=== PATIENT | female | born 1975 | race Caucasian/White ===

== ENCOUNTER → 2023-11-07 | Emergency (ER) | payer OTHER ==
[~2023-11-07] MED LIST: DIPHENHYDRAMINE 50 MG/ML VIAL ONE; KETOROLAC 30 MG/ML INJ ONE; METOCLOPRAMIDE 10 MG/2mL INJ ONE; Magnesium Sulfate 2gm IVPB 2 G/50 ML BAG IV ONE; NA CHLORIDE 0.9% 1,000 ML ONE
--- OUTSIDE RECORDS SUMMARY | 2023-11-07 03:52 | XMS REPORT | Continuity of Care Document ---
Author Name Unknown Address [address] [facility] [address] [place] [address] [facility] Address [address] [facility]. 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 Role Phone Jeremiah DE LA PAZ, Jesse Helen Primary Care Physician Jesse Daniels Attending Clinician Unavailable [email or web address] Attending Clinician Unavaila GUSTAVO Barboza Attending Clinician Unavailable GUSTAVO RUCKER Attending Clinician Unavailable Caleb Silverio RN Attending Clinician Unavailabl e Doctor Unassigned, Naomi Attending Clinician [facility] navailable Lab, [facility] Attending Clinician Unavailable ARTIS ISAAC Attending Clinician Unavailable Visit, [facility] Dermatology Nurse Attending Clinician Unavailable Vinicius Garcia MD Attending Clinician [phone] TREVOR SINGER Attending Clinician Unavailable Jovany Saeed DO Attending Clinician [phone] Trevor Singer MD Attending Clinician [phone] AVTAR HENRY Attending Clinician UnavailVINICIUS Recinos Attending Clinician Unavailab Laura Atkins MD Attending Clinician [phone] [facility] Attending Clinician Unavailable Terrell Black MD Attending Clinician [phone] Jackie Ledezma MD Attending Clinician Karl Spivey MD Attending Clinician Sarah MANN Attending Clinician Unavailable Sarah White Attending Clinician [phone] Pob, [facility] Main Attending Clinician Unavailyovany Isaac MD, Artis Cordova Attending Clinician [phone], [facility] Attending Clinician Unavailable Jose JENNINGS, Johanne Alexander Attending Clinician [phone] JOHANNE GARCIA Attending Clinician Unavailyovany cordova Only, [facility] Attending Clinician Unavailable Kong DE LA PAZ, Efe Attending Clinician [phone] Rodríguez LOZANOS, Satinder Pearl Attending Clinician + [phone] SATINDER ARREGUIN Attending Clinician UnavailNghia Jose MD Attending Clinician [phone] ProviderVishal Attending Clinician Phyllis Paige MD, Ken Roa Attending Clinician [phone] KEN PAIGE Attending Clinician Unavailable [email or web address] Admitting Clinician Unavaila ble Payers Payer Name Policy Type Policy Number Effective Date Expirati on Date Source Problems Condition Name Condition Details Condition Category Status Onset Date Resolution Date Last Treatment Date Treating Clinician Comments Source Ulcerative colitis without complicati ons, unspecifie d location Ulcerative colitis without complicati ons, unspecifie d location Disease Active 10-07 00:00: 00 [facility] 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 [facility] Depo-Prove ra contracept yolanda status Depo-Prove ra contracept yolanda status Disease Active 11-20 00:00: 00 [facility] Vaginal lesion Vaginal lesion Disease Active 11-20 00:00: 00 [facility] Tobacco use disorder Tobacco use disorder Disease Active 11-20 00:00: 00 [facility] History of depression History of depression Disease Active 11-20 00:00: 00 [facility] Seizure disorder Seizure disorder Disease Active 11-20 00:00: 00 [facility] Dyspepsia and other specified disorders of function of stomach Dyspepsia and other specified disorders of function of stomach Disease Active 2010-08 00:00: 00 [facility] Esophageal reflux Esophageal reflux Disease Active 2010-08 00:00: 00 [facility] Hepatitis C virus infection without hepatic coma, unspecifie d chronicity Hepatitis C virus infection without hepatic coma, unspecifie d chronicity Problem Active [facility] Ulcerative colitis without complicati ons, unspecifie d location Ulcerative colitis without complicati ons, unspecifie d location Problem Active [facility] Tobacco use disorder Tobacco use disorder Problem Active [facility] 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 Problem Active [facility] Skin lesion of hand Skin lesion of hand Diagnosis Active [facility] Allergies, Adverse Reactions, Alerts Allergy Name Allergy Type Status Severity Reaction(s) Onset Date Inactive Date Treating Clinician Comments Source Gabapent in Drug Allergy Active Extra pyramidal effects 2017-08 00:00: 00 [facility] acute [facility] Pregabal in Drug Allergy Active Other - See comments 2017-08 00:00: 00 Patient reports feeling like "needles" are on her skin [facility] acute hospital GABAPENT IN DRUG INGREDI Active High EP Effects 2017-08 00:00: 00 [facility] PREGABAL IN DRUG INGREDI Active High Other-Cmnt 2017-08 00:00: 00 [facility] Trazodon e Propensi ty to adverse reaction s Active Other - See comments 11-08 00:00: 00 Night Sweats [facility] acute hospital TRAZODON E DRUG INGREDI Active Other-Cmnt 11-08 00:00: 00 [facility] acute [facility] Doxycycl ine Propensi ty to adverse reaction s Active Unknown - See comments 2010-08 00:00: 00 [facility] acute [facility] Sulfamet hazine Propensi ty to adverse reaction s Active Unknown - See comments 2010-08 00:00: 00 Allergic to Bactrim [facility] DOXYCYCL INE DRUG INGREDI Active Unknown-Cmnt 2010-08 00:00: 00 [facility] SULFAMET HAZINE DRUG INGREDI Active Unknown-Cmnt 2010-08 00:00: 00 [facility] doxycycl ine Adverse Reaction Active Info Not Available [facility] Bactrim Adverse Reaction Active Info Not Available [facility] Social History Social Habit Start Date Stop Date Quantity Comments Source History of tobacco use Cigarette Smoker [facility] ASSERTION [facility] Exposure to SARS-CoV-2 (event) 2022-08-25 00:00:00 2022-09-04 12:29:00 Not sure [facility] Alcohol intake 2022-06-25 00:00:00 2022-06-25 00:00:00 Current non-drinker of alcohol (finding) [facility] Tobacco use and exposure 2022-06-23 00:00:00 2022-06-23 00:00:00 Smokeless tobacco non-user [facility] Cigarettes smoked current (pack per day) - Reported 2022-06-23 00:00:00 2022-06-23 00:00:00 [facility] Cigarette pack-years 2022-06-23 00:00:00 2022-06-23 00:00:00 [facility] Tobacco Comment 2022-06-23 00:00:00 2022-06-23 00:00:00 Smokes 1/2 pk/cig/day [facility] History of Social function 2022-06-23 00:00:00 2022-06-23 00:00:00 [facility] Sex Assigned At 1975 00:00:00 1975 00:00:00 [facility] Smoking Status Start Date Stop Date Source Smokes tobacco daily 2022-06-23 00:00:00 [facility] Medications Ordered Medication Name Filled Medication Name Start Date Stop Date Current Medication? Ordering Clinician Indication Dosage Frequency Signature (SIG) Comments Components Source mupirocin 2 % ointment 2021-08 00:00: 00 Yes [id number] Apply to area(s) 3 (three) times daily. [facility] mupirocin 2 % ointment 2021-08 00:00: 00 Yes [id number] Apply to area(s) 3 (three) times daily. [facility] mupirocin 2 % ointment 2021-08 00:00: 00 Yes [id number] Apply to area(s) 3 (three) times daily. [facility] mupirocin 2 % ointment 2021-08 00:00: 00 Yes [id number] Apply to area(s) 3 (three) times daily. [facility] mupirocin 2 % ointment 2021-08 00:00: 00 Yes [id number] Apply to area(s) 3 (three) times daily. [facility] mupirocin 2 % ointment 2021-08 00:00: 00 Yes [id number] Apply to area(s) 3 (three) times daily. [facility] mupirocin 2 % ointment 2021-08 00:00: 00 Yes [id number] Apply to area(s) 3 (three) times daily. [facility] mupirocin 2 % ointment 2021-08 00:00: 00 Yes [id number] Apply to area(s) 3 (three) times daily. [facility] mupirocin 2 % ointment 2021-08 00:00: 00 Yes [id number] Apply to area(s) 3 (three) times daily. [facility] mupirocin 2 % ointment 2021-08 00:00: 00 Yes [id number] Apply to area(s) 3 (three) times daily. [facility] meloxicam 15 mg tablet 2021-08 00:00: 00 07-21 05:59 :00 No [id number] 15mg Take 1 tablet by mouth once daily as needed for Pain or Inflammati on for up to 20 days. [facility] meloxicam 15 mg tablet 2021-08 00:00: 00 07-21 05:59 :00 No [id number] 15mg Take 1 tablet by mouth once daily as needed for Pain or Inflammati on for up to 20 days. [facility] meloxicam 15 mg tablet 2021-08 00:00: 00 07-21 05:59 :00 No [id number] 15mg Take 1 tablet by mouth once daily as needed for Pain or Inflammati on for up to 20 days. [facility] meloxicam 15 mg tablet 2021-08 00:00: 00 07-21 05:59 :00 No [id number] 15mg Take 1 tablet by mouth once daily as needed for Pain or Inflammati on for up to 20 days. [facility] clindamycin 300 mg capsule 2021-08 00:00: 00 07-08 05:59 :00 No [id number] 300mg Take 1 capsule by mouth 4 (four) times daily for 7 days. [facility] clindamycin 300 mg capsule 2021-08 00:00: 00 07-08 05:59 :00 No [id number] 300mg Take 1 capsule by mouth 4 (four) times daily for 7 days. [facility] clindamycin 300 mg capsule 2021-08 00:00: 00 07-08 05:59 :00 No [id number] 300mg Take 1 capsule by mouth 4 (four) times daily for 7 days. [facility] clindamycin 300 mg capsule 2021-08 00:00: 00 07-08 05:59 :00 No [id number] 300mg Take 1 capsule by mouth 4 (four) times daily for 7 days. [facility] triamcinolo ne acetonide 0.1 % cream 2021-08 00:00: 00 Yes [id number] Apply to area(s) 2 (two) times daily. [facility] triamcinolo ne acetonide 0.1 % cream 2021-08 00:00: 00 Yes [id number] Apply to area(s) 2 (two) times daily. [facility] triamcinolo ne acetonide 0.1 % cream 2021-08 00:00: 00 Yes [id number] Apply to area(s) 2 (two) times daily. [facility] triamcinolo ne acetonide 0.1 % cream 2021-08 00:00: 00 Yes [id number] Apply to area(s) 2 (two) times daily. [facility] triamcinolo ne acetonide 0.1 % cream 2021-08 00:00: 00 Yes [id number] Apply to area(s) 2 (two) times daily. [facility] triamcinolo ne acetonide 0.1 % cream 2021-08 00:00: 00 Yes [id number] Apply to area(s) 2 (two) times daily. [facility] triamcinolo ne acetonide 0.1 % cream 2021-08 00:00: 00 Yes [id number] Apply to area(s) 2 (two) times daily. [facility] triamcinolo ne acetonide 0.1 % cream 2021-08 00:00: 00 Yes [id number] Apply to area(s) 2 (two) times daily. [facility] triamcinolo ne acetonide 0.1 % cream 2021-08 00:00: 00 Yes [id number] Apply to area(s) 2 (two) times daily. [facility] triamcinolo ne acetonide 0.1 % cream 2021-08 00:00: 00 Yes [id number] Apply to area(s) 2 (two) times daily. [facility] triamcinolo ne acetonide 0.1 % cream 2021-08 00:00: 00 Yes [id number] Apply to area(s) 2 (two) times daily. [facility] triamcinolo ne acetonide 0.1 % cream 2021-08 00:00: 00 Yes [id number] Apply to area(s) 2 (two) times daily. [facility] triamcinolo ne acetonide 0.1 % cream 2021-08 00:00: 00 Yes [id number] Apply to area(s) 2 (two) times daily. [facility] triamcinolo ne acetonide 0.1 % cream 2021-08 00:00: 00 Yes [id number] Apply to area(s) 2 (two) times daily. [facility] triamcinolo ne acetonide 0.1 % cream 2021-08 00:00: 00 Yes [id number] Apply to area(s) 2 (two) times daily. [facility] triamcinolo ne acetonide 0.1 % cream 2021-08 00:00: 00 Yes [id number] Apply to area(s) 2 (two) times daily. [facility] fluocinonid e 0.05 % cream 2021-08 00:00: 00 Yes [id number] Apply to area(s) 2 (two) times daily. Avoid face, armpits, and groin. [facility] fluocinonid e 0.05 % cream 2021-08 00:00: 00 Yes [id number] Apply to area(s) 2 (two) times daily. Avoid face, armpits, and groin. [facility] fluocinonid e 0.05 % cream 2021-08 00:00: 00 Yes [id number] Apply to area(s) 2 (two) times daily. Avoid face, armpits, and groin. [facility] fluocinonid e 0.05 % cream 2021-08 00:00: 00 Yes [id number] Apply to area(s) 2 (two) times daily. Avoid face, armpits, and groin. [facility] fluocinonid e 0.05 % cream 2021-08 00:00: 00 Yes [id number] Apply to area(s) 2 (two) times daily. Avoid face, armpits, and groin. [facility] fluocinonid e 0.05 % cream 2021-08 00:00: 00 Yes [id number] Apply to area(s) 2 (two) times daily. Avoid face, armpits, and groin. [facility] fluocinonid e 0.05 % cream 2021-08 00:00: 00 Yes [id number] Apply to area(s) 2 (two) times daily. Avoid face, armpits, and groin. [facility] fluocinonid e 0.05 % cream 2021-08 00:00: 00 Yes [id number] Apply to area(s) 2 (two) times daily. Avoid face, armpits, and groin. [facility] fluocinonid e 0.05 % cream 2021-08 00:00: 00 Yes [id number] Apply to area(s) 2 (two) times daily. Avoid face, armpits, and groin. [facility] fluocinonid e 0.05 % cream 2021-08 00:00: 00 Yes [id number] Apply to area(s) 2 (two) times daily. Avoid face, armpits, and groin. [facility] fluocinonid e 0.05 % cream 2021-08 00:00: 00 Yes [id number] Apply to area(s) 2 (two) times daily. Avoid face, armpits, and groin. [facility] fluocinonid e 0.05 % cream 2021-08 00:00: 00 Yes [id number] Apply to area(s) 2 (two) times daily. Avoid face, armpits, and groin. [facility] fluocinonid e 0.05 % cream 2021-08 00:00: 00 Yes [id number] Apply to area(s) 2 (two) times daily. Avoid face, armpits, and groin. [facility] fluocinonid e 0.05 % cream 2021-08 00:00: 00 Yes [id number] Apply to area(s) 2 (two) times daily. Avoid face, armpits, and groin. [facility] fluocinonid e 0.05 % cream 2021-08 00:00: 00 Yes [id number] Apply to area(s) 2 (two) times daily. Avoid face, armpits, and groin. [facility] fluocinonid e 0.05 % cream 2021-08 00:00: 00 Yes [id number] Apply to area(s) 2 (two) times daily. Avoid face, armpits, and groin. [facility] fluocinonid e 0.05 % cream 2021-08 00:00: 00 Yes [id number] Apply to area(s) 2 (two) times daily. Avoid face, armpits, and groin. [facility] fluocinonid e 0.05 % cream 2021-08 00:00: 00 Yes [id number] Apply to area(s) 2 (two) times daily. Avoid face, armpits, and groin. [facility] glecaprevir -pibrentasv ir (MAVYRET) 100-40 mg 0 09-11 00:00: 00 Yes 3{tbl} Take 3 tablets by mouth daily. [facility] glecaprevir -pibrentasv ir (MAVYRET) 100-40 mg 0 09-11 00:00: 00 Yes 3{tbl} Take 3 tablets by mouth daily. [facility] glecaprevir -pibrentasv ir (MAVYRET) 100-40 mg 2020-0 09-11 00:00: 00 Yes 3{tbl} Take 3 tablets by mouth daily. [facility] glecaprevir -pibrentasv ir (MAVYRET) 100-40 mg 0 09-11 00:00: 00 Yes 3{tbl} Take 3 tablets by mouth daily. [facility] glecaprevir -pibrentasv ir (MAVYRET) 100-40 mg 0 09-11 00:00: 00 Yes 3{tbl} Take 3 tablets by mouth daily. [facility] glecaprevir -pibrentasv ir (MAVYRET) 100-40 mg 0 09-11 00:00: 00 Yes 3{tbl} Take 3 tablets by mouth daily. [facility] glecaprevir -pibrentasv ir (MAVYRET) 100-40 mg 2020-0 09-11 00:00: 00 Yes 3{tbl} Take 3 tablets by mouth daily. [facility] glecaprevir -pibrentasv ir (MAVYRET) 100-40 mg 2020-0 09-11 00:00: 00 Yes 3{tbl} Take 3 tablets by mouth daily. [facility] glecaprevir -pibrentasv ir (MAVYRET) 100-40 mg 2020-0 09-11 00:00: 00 Yes 3{tbl} Take 3 tablets by mouth daily. [facility] glecaprevir -pibrentasv ir (MAVYRET) 100-40 mg 2020-0 1-27 00:00: 00 Yes 3{tbl} Take 3 tablets by mouth daily. [facility] glecaprevir -pibrentasv ir (MAVYRET) 100-40 mg 2020-0 09-11 00:00: 00 Yes 3{tbl} Take 3 tablets by mouth daily. [facility] glecaprevir -pibrentasv ir (MAVYRET) 100-40 mg 2020-0 09-11 00:00: 00 Yes 3{tbl} Take 3 tablets by mouth daily. [facility] glecaprevir -pibrentasv ir (MAVYRET) 100-40 mg 2020-0 09-11 00:00: 00 Yes 3{tbl} Take 3 tablets by mouth daily. [facility] glecaprevir -pibrentasv ir (MAVYRET) 100-40 mg 2020-0 09-11 00:00: 00 Yes 3{tbl} Take 3 tablets by mouth daily. [facility] glecaprevir -pibrentasv ir (MAVYRET) 100-40 mg 2020-0 09-11 00:00: 00 Yes 3{tbl} Take 3 tablets by mouth daily. [facility] glecaprevir -pibrentasv ir (MAVYRET) 100-40 mg 2020-0 09-11 00:00: 00 Yes 3{tbl} Take 3 tablets by mouth daily. [facility] glecaprevir -pibrentasv ir (MAVYRET) 100-40 mg 2020-0 09-11 00:00: 00 Yes 3{tbl} Take 3 tablets by mouth daily. [facility] glecaprevir -pibrentasv ir (MAVYRET) 100-40 mg 2020-0 09-11 00:00: 00 Yes 3{tbl} Take 3 tablets by mouth daily. [facility] glecaprevir -pibrentasv ir (MAVYRET) 100-40 mg 2020-0 09-11 00:00: 00 Yes 3{tbl} Take 3 tablets by mouth daily. [facility] glecaprevir -pibrentasv ir (MAVYRET) 100-40 mg 2020-0 09-11 00:00: 00 Yes 3{tbl} Take 3 tablets by mouth daily. [facility] glecaprevir -pibrentasv ir (MAVYRET) 100-40 mg 2020-0 09-11 00:00: 00 Yes 3{tbl} Take 3 tablets by mouth daily. [facility] glecaprevir -pibrentasv ir (MAVYRET) 100-40 mg 2020-0 09-11 00:00: 00 Yes 3{tbl} Take 3 tablets by mouth daily. [facility] glecaprevir -pibrentasv ir (MAVYRET) 100-40 mg 2020-0 09-11 00:00: 00 Yes 3{tbl} Take 3 tablets by mouth daily. [facility] glecaprevir -pibrentasv ir (MAVYRET) 100-40 mg 2020-0 09-11 00:00: 00 Yes 3{tbl} Take 3 tablets by mouth daily. [facility] glecaprevir -pibrentasv ir (MAVYRET) 100-40 mg 2020-0 09-11 00:00: 00 Yes 3{tbl} Take 3 tablets by mouth daily. [facility] glecaprevir -pibrentasv ir (MAVYRET) 100-40 mg 2020-0 09-11 00:00: 00 Yes 3{tbl} Take 3 tablets by mouth daily. [facility] glecaprevir -pibrentasv ir (MAVYRET) 100-40 mg 2020-0 09-11 00:00: 00 Yes 3{tbl} Take 3 tablets by mouth daily. [facility] glecaprevir -pibrentasv ir (MAVYRET) 100-40 mg 2020-0 09-11 00:00: 00 Yes 3{tbl} Take 3 tablets by mouth daily. [facility] glecaprevir -pibrentasv ir (MAVYRET) 100-40 mg 09-11 00:00: 00 Yes 3{tbl} Take 3 tablets by mouth daily. [facility] glecaprevir -pibrentasv ir (MAVYRET) 100-40 mg 09-11 00:00: 00 Yes 3{tbl} Take 3 tablets by mouth daily. [facility] glecaprevir -pibrentasv ir (MAVYRET) 100-40 mg 09-11 00:00: 00 Yes 3{tbl} Take 3 tablets by mouth daily. [facility] glecaprevir -pibrentasv ir (MAVYRET) 100-40 mg 09-11 00:00: 00 Yes 3{tbl} Take 3 tablets by mouth daily. [facility] ibuprofen 600 mg tablet 2019-08 00:00: 00 Yes [id number] 600mg Take 1 tablet by mouth every 6 (six) hours as needed for Pain (scale 4-6). [facility] chlorhexidi ne 0.12 % mouthwash 2019-08 00:00: 00 Yes [id number] 15mL Swish and spit out 15 mL 2 (two) times daily. [facility] amoxicillin 500 mg capsule 2019-08 00:00: 00 Yes [id number] 500mg Take 1 capsule by mouth 3 (three) times daily. [facility] ibuprofen 600 mg tablet 2019-08 00:00: 00 Yes [id number] 600mg Take 1 tablet by mouth every 6 (six) hours as needed for Pain (scale 4-6). [facility] chlorhexidi ne 0.12 % mouthwash 2019-08 00:00: 00 Yes [id number] 15mL Swish and spit out 15 mL 2 (two) times daily. [facility] amoxicillin 500 mg capsule 2019-08 00:00: 00 Yes [id number] 500mg Take 1 capsule by mouth 3 (three) times daily. [facility] ibuprofen 600 mg tablet 2019-08 00:00: 00 Yes [id number] 600mg Take 1 tablet by mouth every 6 (six) hours as needed for Pain (scale 4-6). [facility] chlorhexidi ne 0.12 % mouthwash 2019-08 00:00: 00 Yes [id number] 15mL Swish and spit out 15 mL 2 (two) times daily. [facility] amoxicillin 500 mg capsule 2019-08 00:00: 00 Yes [id number] 500mg Take 1 capsule by mouth 3 (three) times daily. [facility] ibuprofen 600 mg tablet 2019-08 00:00: 00 Yes [id number] 600mg Take 1 tablet by mouth every 6 (six) hours as needed for Pain (scale 4-6). [facility] chlorhexidi ne 0.12 % mouthwash 2019-08 00:00: 00 Yes [id number] 15mL Swish and spit out 15 mL 2 (two) times daily. [facility] amoxicillin 500 mg capsule 2019-08 00:00: 00 Yes [id number] 500mg Take 1 capsule by mouth 3 (three) times daily. [facility] ibuprofen 600 mg tablet 2019-08 00:00: 00 Yes [id number] 600mg Take 1 tablet by mouth every 6 (six) hours as needed for Pain (scale 4-6). [facility] chlorhexidi ne 0.12 % mouthwash 2019-08 00:00: 00 Yes [id number] 15mL Swish and spit out 15 mL 2 (two) times daily. [facility] amoxicillin 500 mg capsule 2019-08 00:00: 00 Yes [id number] 500mg Take 1 capsule by mouth 3 (three) times daily. [facility] ibuprofen 600 mg tablet 2019-08 00:00: 00 Yes [id number] 600mg Take 1 tablet by mouth every 6 (six) hours as needed for Pain (scale 4-6). [facility] chlorhexidi ne 0.12 % mouthwash 2019-08 00:00: 00 Yes [id number] 15mL Swish and spit out 15 mL 2 (two) times daily. [facility] amoxicillin 500 mg capsule 2019-08 00:00: 00 Yes [id number] 500mg Take 1 capsule by mouth 3 (three) times daily. [facility] ibuprofen 600 mg tablet 2019-08 00:00: 00 Yes [id number] 600mg Take 1 tablet by mouth every 6 (six) hours as needed for Pain (scale 4-6). [facility] chlorhexidi ne 0.12 % mouthwash 2019-08 0 00:00: 00 Yes [id number] 15mL Swish and spit out 15 mL 2 (two) times daily. [facility] amoxicillin 500 mg capsule 2019-08 00:00: 00 Yes [id number] 500mg Take 1 capsule by mouth 3 (three) times daily. [facility] ibuprofen 600 mg tablet 2019-08 00:00: 00 Yes [id number] 600mg Take 1 tablet by mouth every 6 (six) hours as needed for Pain (scale 4-6). [facility] chlorhexidi ne 0.12 % mouthwash 2019-08 00:00: 00 Yes [id number] 15mL Swish and spit out 15 mL 2 (two) times daily. [facility] amoxicillin 500 mg capsule 2019-08 00:00: 00 Yes [id number] 500mg Take 1 capsule by mouth 3 (three) times daily. [facility] ibuprofen 600 mg tablet 2019-08 00:00: 00 Yes [id number] 600mg Take 1 tablet by mouth every 6 (six) hours as needed for Pain (scale 4-6). [facility] chlorhexidi ne 0.12 % mouthwash 2019-08 00:00: 00 Yes [id number] 15mL Swish and spit out 15 mL 2 (two) times daily. [facility] amoxicillin 500 mg capsule 2019-08 00:00: 00 Yes [id number] 500mg Take 1 capsule by mouth 3 (three) times daily. [facility] ibuprofen 600 mg tablet 2019-08 00:00: 00 Yes [id number] 600mg Take 1 tablet by mouth every 6 (six) hours as needed for Pain (scale 4-6). [facility] chlorhexidi ne 0.12 % mouthwash 2019-08 00:00: 00 Yes [id number] 15mL Swish and spit out 15 mL 2 (two) times daily. [facility] amoxicillin 500 mg capsule 2019-08 00:00: 00 Yes [id number] 500mg Take 1 capsule by mouth 3 (three) times daily. [facility] ibuprofen 600 mg tablet 2019-08 00:00: 00 Yes [id number] 600mg Take 1 tablet by mouth every 6 (six) hours as needed for Pain (scale 4-6). [facility] chlorhexidi ne 0.12 % mouthwash 2019-08 00:00: 00 Yes [id number] 15mL Swish and spit out 15 mL 2 (two) times daily. [facility] amoxicillin 500 mg capsule 2019-08 00:00: 00 Yes [id number] 500mg Take 1 capsule by mouth 3 (three) times daily. [facility] ibuprofen 600 mg tablet 2019-08 00:00: 00 Yes [id number] 600mg Take 1 tablet by mouth every 6 (six) hours as needed for Pain (scale 4-6). [facility] chlorhexidi ne 0.12 % mouthwash 2019-08 00:00: 00 Yes [id number] 15mL Swish and spit out 15 mL 2 (two) times daily. [facility] amoxicillin 500 mg capsule 2019-08 00:00: 00 Yes [id number] 500mg Take 1 capsule by mouth 3 (three) times daily. [facility] ibuprofen 600 mg tablet 2019-08 00:00: 00 Yes [id number] 600mg Take 1 tablet by mouth every 6 (six) hours as needed for Pain (scale 4-6). [facility] chlorhexidi ne 0.12 % mouthwash 2019-08 00:00: 00 Yes [id number] 15mL Swish and spit out 15 mL 2 (two) times daily. [facility] amoxicillin 500 mg capsule 2019-08 00:00: 00 Yes [id number] 500mg Take 1 capsule by mouth 3 (three) times daily. [facility] ibuprofen 600 mg tablet 2019-08 00:00: 00 Yes [id number] 600mg Take 1 tablet by mouth every 6 (six) hours as needed for Pain (scale 4-6). [facility] chlorhexidi ne 0.12 % mouthwash 2019-08 00:00: 00 Yes [id number] 15mL Swish and spit out 15 mL 2 (two) times daily. [facility] amoxicillin 500 mg capsule 2019-08 00:00: 00 Yes [id number] 500mg Take 1 capsule by mouth 3 (three) times daily. [facility] ibuprofen 600 mg tablet 2019-08 00:00: 00 Yes [id number] 600mg Take 1 tablet by mouth every 6 (six) hours as needed for Pain (scale 4-6). [facility] chlorhexidi ne 0.12 % mouthwash 2019-08 00:00: 00 Yes [id number] 15mL Swish and spit out 15 mL 2 (two) times daily. [facility] amoxicillin 500 mg capsule 2019-08 00:00: 00 Yes [id number] 500mg Take 1 capsule by mouth 3 (three) times daily. [facility] ibuprofen 600 mg tablet 2019-08 00:00: 00 Yes [id number] 600mg Take 1 tablet by mouth every 6 (six) hours as needed for Pain (scale 4-6). [facility] chlorhexidi ne 0.12 % mouthwash 2019-08 00:00: 00 Yes [id number] 15mL Swish and spit out 15 mL 2 (two) times daily. [facility] amoxicillin 500 mg capsule 2019-08 00:00: 00 Yes [id number] 500mg Take 1 capsule by mouth 3 (three) times daily. [facility] ibuprofen 600 mg tablet 2019-08 00:00: 00 Yes [id number] 600mg Take 1 tablet by mouth every 6 (six) hours as needed for Pain (scale 4-6). [facility] chlorhexidi ne 0.12 % mouthwash 2019-08 00:00: 00 Yes [id number] 15mL Swish and spit out 15 mL 2 (two) times daily. [facility] amoxicillin 500 mg capsule 2019-08 00:00: 00 Yes [id number] 500mg Take 1 capsule by mouth 3 (three) times daily. [facility] ibuprofen 600 mg tablet 2019-08 00:00: 00 Yes [id number] 600mg Take 1 tablet by mouth every 6 (six) hours as needed for Pain (scale 4-6). [facility] chlorhexidi ne 0.12 % mouthwash 2019-08 00:00: 00 Yes [id number] 15mL Swish and spit out 15 mL 2 (two) times daily. [facility] amoxicillin 500 mg capsule 2019-08 00:00: 00 Yes [id number] 500mg Take 1 capsule by mouth 3 (three) times daily. [facility] ibuprofen 600 mg tablet 2019-08 00:00: 00 Yes [id number] 600mg Take 1 tablet by mouth every 6 (six) hours as needed for Pain (scale 4-6). [facility] chlorhexidi ne 0.12 % mouthwash 2019-08 00:00: 00 Yes [id number] 15mL Swish and spit out 15 mL 2 (two) times daily. [facility] amoxicillin 500 mg capsule 2019-08 00:00: 00 Yes [id number] 500mg Take 1 capsule by mouth 3 (three) times daily. [facility] ibuprofen 600 mg tablet 2019-08 00:00: 00 Yes [id number] 600mg Take 1 tablet by mouth every 6 (six) hours as needed for Pain (scale 4-6). [facility] chlorhexidi ne 0.12 % mouthwash 2019-08 00:00: 00 Yes [id number] 15mL Swish and spit out 15 mL 2 (two) times daily. [facility] amoxicillin 500 mg capsule 2019-08 00:00: 00 Yes [id number] 500mg Take 1 capsule by mouth 3 (three) times daily. [facility] ibuprofen 600 mg tablet 2019-08 00:00: 00 Yes [id number] 600mg Take 1 tablet by mouth every 6 (six) hours as needed for Pain (scale 4-6). [facility] chlorhexidi ne 0.12 % mouthwash 2019-08 00:00: 00 Yes [id number] 15mL Swish and spit out 15 mL 2 (two) times daily. [facility] amoxicillin 500 mg capsule 2019-08 00:00: 00 Yes [id number] 500mg Take 1 capsule by mouth 3 (three) times daily. [facility] ibuprofen 600 mg tablet 2019-08 00:00: 00 Yes [id number] 600mg Take 1 tablet by mouth every 6 (six) hours as needed for Pain (scale 4-6). [facility] chlorhexidi ne 0.12 % mouthwash 2019-08 00:00: 00 Yes [id number] 15mL Swish and spit out 15 mL 2 (two) times daily. [facility] amoxicillin 500 mg capsule 2019-08 00:00: 00 Yes [id number] 500mg Take 1 capsule by mouth 3 (three) times daily. [facility] ibuprofen 600 mg tablet 2019-08 00:00: 00 Yes [id number] 600mg Take 1 tablet by mouth every 6 (six) hours as needed for Pain (scale 4-6). [facility] chlorhexidi ne 0.12 % mouthwash 2019-08 00:00: 00 Yes [id number] 15mL Swish and spit out 15 mL 2 (two) times daily. [facility] amoxicillin 500 mg capsule 2019-08 00:00: 00 Yes [id number] 500mg Take 1 capsule by mouth 3 (three) times daily. [facility] ibuprofen 600 mg tablet 2019-08 00:00: 00 Yes [id number] 600mg Take 1 tablet by mouth every 6 (six) hours as needed for Pain (scale 4-6). [facility] chlorhexidi ne 0.12 % mouthwash 2019-08 0 00:00: 00 Yes [id number] 15mL Swish and spit out 15 mL 2 (two) times daily. [facility] amoxicillin 500 mg capsule 2019-08 00:00: 00 Yes [id number] 500mg Take 1 capsule by mouth 3 (three) times daily. [facility] ibuprofen 600 mg tablet 2019-08 00:00: 00 Yes [id number] 600mg Take 1 tablet by mouth every 6 (six) hours as needed for Pain (scale 4-6). [facility] chlorhexidi ne 0.12 % mouthwash 2019-08 00:00: 00 Yes [id number] 15mL Swish and spit out 15 mL 2 (two) times daily. [facility] amoxicillin 500 mg capsule 2019-08 00:00: 00 Yes [id number] 500mg Take 1 capsule by mouth 3 (three) times daily. [facility] ibuprofen 600 mg tablet 2019-08 00:00: 00 Yes [id number] 600mg Take 1 tablet by mouth every 6 (six) hours as needed for Pain (scale 4-6). [facility] chlorhexidi ne 0.12 % mouthwash 2019-08 00:00: 00 Yes [id number] 15mL Swish and spit out 15 mL 2 (two) times daily. [facility] amoxicillin 500 mg capsule 2019-08 00:00: 00 Yes [id number] 500mg Take 1 capsule by mouth 3 (three) times daily. [facility] ibuprofen 600 mg tablet 2019-08 00:00: 00 Yes [id number] 600mg Take 1 tablet by mouth every 6 (six) hours as needed for Pain (scale 4-6). [facility] chlorhexidi ne 0.12 % mouthwash 2019-08 0 00:00: 00 Yes [id number] 15mL Swish and spit out 15 mL 2 (two) times daily. [facility] amoxicillin 500 mg capsule 2019-08 00:00: 00 Yes [id number] 500mg Take 1 capsule by mouth 3 (three) times daily. [facility] ibuprofen 600 mg tablet 2019-08 00:00: 00 Yes [id number] 600mg Take 1 tablet by mouth every 6 (six) hours as needed for Pain (scale 4-6). [facility] chlorhexidi ne 0.12 % mouthwash 2019-08 00:00: 00 Yes [id number] 15mL Swish and spit out 15 mL 2 (two) times daily. [facility] amoxicillin 500 mg capsule 2019-08 00:00: 00 Yes [id number] 500mg Take 1 capsule by mouth 3 (three) times daily. [facility] ibuprofen 600 mg tablet 2019-08 00:00: 00 Yes [id number] 600mg Take 1 tablet by mouth every 6 (six) hours as needed for Pain (scale 4-6). [facility] chlorhexidi ne 0.12 % mouthwash 2019-08 00:00: 00 Yes [id number] 15mL Swish and spit out 15 mL 2 (two) times daily. [facility] amoxicillin 500 mg capsule 2019-08 00:00: 00 Yes [id number] 500mg Take 1 capsule by mouth 3 (three) times daily. [facility] ibuprofen 600 mg tablet 2019-08 00:00: 00 Yes [id number] 600mg Take 1 tablet by mouth every 6 (six) hours as needed for Pain (scale 4-6). [facility] chlorhexidi ne 0.12 % mouthwash 2019-08 00:00: 00 Yes [id number] 15mL Swish and spit out 15 mL 2 (two) times daily. [facility] amoxicillin 500 mg capsule 2019-08 00:00: 00 Yes [id number] 500mg Take 1 capsule by mouth 3 (three) times daily. [facility] ibuprofen 600 mg tablet 2019-08 00:00: 00 Yes [id number] 600mg Take 1 tablet by mouth every 6 (six) hours as needed for Pain (scale 4-6). [facility] chlorhexidi ne 0.12 % mouthwash 2019-08 0 00:00: 00 Yes [id number] 15mL Swish and spit out 15 mL 2 (two) times daily. [facility] amoxicillin 500 mg capsule 2019-08 00:00: 00 Yes [id number] 500mg Take 1 capsule by mouth 3 (three) times daily. [facility] ibuprofen 600 mg tablet 2019-08 00:00: 00 Yes [id number] 600mg Take 1 tablet by mouth every 6 (six) hours as needed for Pain (scale 4-6). [facility] chlorhexidi ne 0.12 % mouthwash 2019-08 00:00: 00 Yes [id number] 15mL Swish and spit out 15 mL 2 (two) times daily. [facility] amoxicillin 500 mg capsule 2019-08 00:00: 00 Yes [id number] 500mg Take 1 capsule by mouth 3 (three) times daily. [facility] ibuprofen 600 mg tablet 2019-08 00:00: 00 Yes [id number] 600mg Take 1 tablet by mouth every 6 (six) hours as needed for Pain (scale 4-6). [facility] chlorhexidi ne 0.12 % mouthwash 2019-08 00:00: 00 Yes [id number] 15mL Swish and spit out 15 mL 2 (two) times daily. [facility] amoxicillin 500 mg capsule 2019-08 00:00: 00 Yes [id number] 500mg Take 1 capsule by mouth 3 (three) times daily. [facility] ibuprofen 600 mg tablet 2019-08 00:00: 00 Yes [id number] 600mg Take 1 tablet by mouth every 6 (six) hours as needed for Pain (scale 4-6). [facility] chlorhexidi ne 0.12 % mouthwash 2019-08 00:00: 00 Yes [id number] 15mL Swish and spit out 15 mL 2 (two) times daily. [facility] 2019-08 00:00: 00 Yes [id number] 500mg Take 1 capsule by mouth 3 (three) times daily. [facility] mg [facility] 2019-08 00:00: 00 Yes [id number] 600mg Take 1 tablet by mouth every 6 (six) hours as needed for Pain (scale 4-6). [facility] chlorhexidi ne 0.12 % mouthwash 2019-08 00:00: 00 Yes [id number] 15mL Swish and spit out 15 mL 2 (two) times daily. [facility] amoxicillin 500 mg capsule 2019-08 00:00: 00 Yes [id number] 500mg Take 1 capsule by mouth 3 (three) times daily. [facility] ibuprofen 600 mg tablet 2019-08 00:00: 00 Yes [id number] 600mg Take 1 tablet by mouth every 6 (six) hours as needed for Pain (scale 4-6). [facility] chlorhexidi ne 0.12 % mouthwash 2019-08 00:00: 00 Yes [id number] 15mL Swish and spit out 15 mL 2 (two) times daily. [facility] amoxicillin 500 mg capsule 2019-08 00:00: 00 Yes [id number] 500mg Take 1 capsule by mouth 3 (three) times daily. [facility] ibuprofen 600 mg tablet 2019-08 00:00: 00 Yes [id number] 600mg Take 1 tablet by mouth every 6 (six) hours as needed for Pain (scale 4-6). [facility] chlorhexidi ne 0.12 % mouthwash 2019-08 00:00: 00 Yes [id number] 15mL Swish and spit out 15 mL 2 (two) times daily. [facility] amoxicillin 500 mg capsule 2019-08 00:00: 00 Yes [id number] 500mg Take 1 capsule by mouth 3 (three) times daily. [facility] ibuprofen 600 mg tablet 2019-08 00:00: 00 Yes [id number] 600mg Take 1 tablet by mouth every 6 (six) hours as needed for Pain (scale 4-6). [facility] chlorhexidi ne 0.12 % mouthwash 2019-08 0 00:00: 00 Yes [id number] 15mL Swish and spit out 15 mL 2 (two) times daily. [facility] amoxicillin 500 mg capsule 2019-08 0 00:00: 00 Yes [id number] 500mg Take 1 capsule by mouth 3 (three) times daily. [facility] amoxicillin 500 mg capsule 2019-0 -24 00:00: 00 Yes [id number] 500mg Take 1 capsule by mouth 3 (three) times daily. [facility] amoxicillin 500 mg capsule 0 05-09 00:00: 00 Yes [id number] 500mg Take 1 capsule by mouth 3 (three) times daily. [facility] amoxicillin 500 mg capsule 0 05-09 00:00: 00 Yes [id number] 500mg Take 1 capsule by mouth 3 (three) times daily. [facility] amoxicillin 500 mg capsule 0 05-09 00:00: 00 Yes [id number] 500mg Take 1 capsule by mouth 3 (three) times daily. [facility] amoxicillin 500 mg capsule 0 05-09 00:00: 00 Yes [id number] 500mg Take 1 capsule by mouth 3 (three) times daily. [facility] amoxicillin 500 mg capsule 0 24 00:00: 00 Yes [id number] 500mg Take 1 capsule by mouth 3 (three) times daily. [facility] amoxicillin 500 mg capsule 2019-0 24 00:00: 00 Yes [id number] 500mg Take 1 capsule by mouth 3 (three) times daily. [facility] amoxicillin 500 mg capsule 2019-0 9-24 00:00: 00 Yes [id number] 500mg Take 1 capsule by mouth 3 (three) times daily. [facility] amoxicillin 500 mg capsule 2019-0 9-24 00:00: 00 Yes [id number] 500mg Take 1 capsule by mouth 3 (three) times daily. [facility] amoxicillin 500 mg capsule 2020-0 9-24 00:00: 00 Yes [id number] 500mg Take 1 capsule by mouth 3 (three) times daily. [facility] amoxicillin 500 mg capsule 2020-0 9-24 00:00: 00 Yes [id number] 500mg Take 1 capsule by mouth 3 (three) times daily. [facility] 2020-0 9-24 00:00: 00 Yes [id number] 500mg Take 1 capsule by mouth 3 (three) times daily. [facility] 2020-0 9-24 00:00: 00 Yes [id number] 500mg Take 1 capsule by mouth 3 (three) times daily. [facility] 2020-0 9-24 00:00: 00 Yes [id number] 500mg Take 1 capsule by mouth 3 (three) times daily. [facility] 2020-0 9-24 00:00: 00 Yes [id number] 500mg Take 1 capsule by mouth 3 (three) times daily. [facility] amoxicillin 500 mg capsule 2020-0 9-24 00:00: 00 Yes [id number] 500mg Take 1 capsule by mouth 3 (three) times daily. [facility] amoxicillin 500 mg capsule 2020-0 9-24 00:00: 00 Yes [id number] 500mg Take 1 capsule by mouth 3 (three) times daily. [facility] amoxicillin 500 mg capsule 2020-0 9-24 00:00: 00 Yes [id number] 500mg Take 1 capsule by mouth 3 (three) times daily. [facility] 2020-0 9-24 00:00: 00 Yes [id number] 500mg Take 1 capsule by mouth 3 (three) times daily. [facility] am[facility] mg [facility] 2020-0 9-24 00:00: 00 Yes [id number] 500mg Take 1 capsule by mouth 3 (three) times daily. [facility] am[facility] 2020-0 9-24 00:00: 00 Yes [id number] 500mg Take 1 capsule by mouth 3 (three) times daily. [facility] 2020-0 9-24 00:00: 00 Yes [id number] 500mg Take 1 capsule by mouth 3 (three) times daily. [facility] amoxicillin 500 mg capsule 2020-0 924 00:00: 00 Yes [id number] 500mg Take 1 capsule by mouth 3 (three) times daily. [facility] amoxicillin 500 mg capsule 2020-0 924 00:00: 00 Yes [id number] 500mg Take 1 capsule by mouth 3 (three) times daily. [facility] amoxicillin 500 mg capsule 2020-0 924 00:00: 00 Yes [id number] 500mg Take 1 capsule by mouth 3 (three) times daily. [facility] amoxicillin 500 mg capsule 2019-0 24 00:00: 00 06-23 00:00 :00 No [id number] 500mg Take 1 capsule by mouth 3 (three) times daily. [facility] amoxicillin 500 mg capsule 2019-0 24 00:00: 00 06-23 00:00 :00 No [id number] 500mg Take 1 capsule by mouth 3 (three) times daily. [facility] amoxicillin 500 mg capsule 2019-0 24 00:00: 00 06-23 00:00 :00 No [id number] 500mg Take 1 capsule by mouth 3 (three) times daily. [facility] glecaprevir -pibrentasv ir (MAVYRET) 100-40 mg 2020-0 05-08 00:00: 00 Yes 3{tbl} Take 3 tablets by mouth daily. [facility] glecaprevir -pibrentasv ir (MAVYRET) 100-40 mg 2020-0 05-08 00:00: 00 Yes 3{tbl} Take 3 tablets by mouth daily. [facility] glecaprevir -pibrentasv ir (MAVYRET) 100-40 mg 2020-0 05-08 00:00: 00 Yes 3{tbl} Take 3 tablets by mouth daily. [facility] glecaprevir -pibrentasv ir (MAVYRET) 100-40 mg 2020-0 05-08 00:00: 00 Yes 3{tbl} Take 3 tablets by mouth daily. [facility] glecaprevir -pibrentasv ir (MAVYRET) 100-40 mg 2020-0 9-23 00:00: 00 Yes 3{tbl} Take 3 tablets by mouth daily. [facility] glecaprevir -pibrentasv ir (MAVYRET) 100-40 mg 2020-0 9-23 00:00: 00 Yes 3{tbl} Take 3 tablets by mouth daily. [facility] glecaprevir -pibrentasv ir (MAVYRET) 100-40 mg 2020-0 9-23 00:00: 00 Yes 3{tbl} Take 3 tablets by mouth daily. [facility] glecaprevir -pibrentasv ir (MAVYRET) 100-40 mg 2020-0 9-23 00:00: 00 Yes 3{tbl} Take 3 tablets by mouth daily. [facility] glecaprevir -pibrentasv ir (MAVYRET) 100-40 mg 2020-0 9-23 00:00: 00 Yes 3{tbl} Take 3 tablets by mouth daily. [facility] glecaprevir -pibrentasv ir (MAVYRET) 100-40 mg 2020-0 9-23 00:00: 00 Yes 3{tbl} Take 3 tablets by mouth daily. [facility] glecaprevir -pibrentasv ir (MAVYRET) 100-40 mg 2020-0 9 00:00: 00 Yes 3{tbl} Take 3 tablets by mouth daily. [facility] glecaprevir -pibrentasv ir (MAVYRET) 100-40 mg 2020-0 9-23 00:00: 00 Yes 3{tbl} Take 3 tablets by mouth daily. [facility] glecaprevir -pibrentasv ir (MAVYRET) 100-40 mg 2020-0 9-23 00:00: 00 Yes 3{tbl} Take 3 tablets by mouth daily. [facility] glecaprevir -pibrentasv ir (MAVYRET) 100-40 mg 05-08 00:00: 00 Yes 3{tbl} Take 3 tablets by mouth daily. [facility] glecaprevir -pibrentasv ir (MAVYRET) 100-40 mg 05-08 00:00: 00 Yes 3{tbl} Take 3 tablets by mouth daily. [facility] glecaprevir -pibrentasv ir (MAVYRET) 100-40 mg 05-08 00:00: 00 Yes 3{tbl} Take 3 tablets by mouth daily. [facility] glecaprevir -pibrentasv ir (MAVYRET) 100-40 mg 05-08 00:00: 00 09-11 00:00 :00 No 3{tbl} Take 3 tablets by mouth daily. [facility] ledipasvir- sofosbuvir (HARVONI) 90-400 mg per tablet 05-06 00:00: 00 Yes 1{tbl} Take 1 tablet by mouth daily. [facility] ledipasvir- sofosbuvir (HARVONI) 90-400 mg per tablet 05-06 00:00: 00 Yes 1{tbl} Take 1 tablet by mouth daily. [facility] ledipasvir- sofosbuvir (HARVONI) 90-400 mg per tablet 05-06 00:00: 00 Yes 1{tbl} Take 1 tablet by mouth daily. [facility] ledipasvir- sofosbuvir (HARVONI) 90-400 mg per tablet 05-06 00:00: 00 Yes 1{tbl} Take 1 tablet by mouth daily. [facility] ledipasvir- sofosbuvir (HARVONI) 90-400 mg per tablet 05-06 00:00: 00 Yes 1{tbl} Take 1 tablet by mouth daily. [facility] ledipasvir- sofosbuvir (HARVONI) 90-400 mg per tablet 05-06 00:00: 00 Yes 1{tbl} Take 1 tablet by mouth daily. [facility] ledipasvir- sofosbuvir (HARVONI) 90-400 mg per tablet 05-06 00:00: 00 Yes 1{tbl} Take 1 tablet by mouth daily. [facility] ledipasvir- sofosbuvir (HARVONI) 90-400 mg per tablet 05-06 00:00: 00 Yes 1{tbl} Take 1 tablet by mouth daily. [facility] ledipasvir- sofosbuvir (HARVONI) 90-400 mg per tablet 05-06 00:00: 00 Yes 1{tbl} Take 1 tablet by mouth daily. [facility] ledipasvir- sofosbuvir (HARVONI) 90-400 mg per tablet 05-06 00:00: 00 Yes 1{tbl} Take 1 tablet by mouth daily. [facility] ledipasvir- sofosbuvir (HARVONI) 90-400 mg per tablet 05-06 00:00: 00 Yes 1{tbl} Take 1 tablet by mouth daily. [facility] ledipasvir- sofosbuvir (HARVONI) 90-400 mg per tablet 05-06 00:00: 00 Yes 1{tbl} Take 1 tablet by mouth daily. [facility] ledipasvir- sofosbuvir (HARVONI) 90-400 mg per tablet 05-06 00:00: 00 Yes 1{tbl} Take 1 tablet by mouth daily. [facility] ledipasvir- sofosbuvir (HARVONI) 90-400 mg per tablet 05-06 00:00: 00 Yes 1{tbl} Take 1 tablet by mouth daily. [facility] ledipasvir- sofosbuvir (HARVONI) 90-400 mg per tablet 05-06 00:00: 00 Yes 1{tbl} Take 1 tablet by mouth daily. [facility] ledipasvir- sofosbuvir (HARVONI) 90-400 mg per tablet 05-06 00:00: 00 Yes 1{tbl} Take 1 tablet by mouth daily. [facility] ledipasvir- sofosbuvir (HARVONI) 90-400 mg per tablet 05-06 00:00: 00 Yes 1{tbl} Take 1 tablet by mouth daily. [facility] ledipasvir- sofosbuvir (HARVONI) 90-400 mg per tablet 05-06 00:00: 00 Yes 1{tbl} Take 1 tablet by mouth daily. [facility] ledipasvir- sofosbuvir (HARVONI) 90-400 mg per tablet 05-06 00:00: 00 Yes 1{tbl} Take 1 tablet by mouth daily. [facility] ledipasvir- sofosbuvir (HARVONI) 90-400 mg per tablet 05-06 00:00: 00 Yes 1{tbl} Take 1 tablet by mouth daily. [facility] ledipasvir- sofosbuvir (HARVONI) 90-400 mg per tablet 05-06 00:00: 00 Yes 1{tbl} Take 1 tablet by mouth daily. [facility] ledipasvir- sofosbuvir (HARVONI) 90-400 mg per tablet 05-06 00:00: 00 Yes 1{tbl} Take 1 tablet by mouth daily. [facility] ledipasvir- sofosbuvir (HARVONI) 90-400 mg per tablet 05-06 00:00: 00 Yes 1{tbl} Take 1 tablet by mouth daily. [facility] ledipasvir- sofosbuvir (HARVONI) 90-400 mg per tablet 05-06 00:00: 00 Yes 1{tbl} Take 1 tablet by mouth daily. [facility] ledipasvir- sofosbuvir (HARVONI) 90-400 mg per tablet 05-06 00:00: 00 Yes 1{tbl} Take 1 tablet by mouth daily. [facility] ledipasvir- sofosbuvir (HARVONI) 90-400 mg per tablet 05-06 00:00: 00 Yes 1{tbl} Take 1 tablet by mouth daily. [facility] ledipasvir- sofosbuvir (HARVONI) 90-400 mg per tablet 05-06 00:00: 00 Yes 1{tbl} Take 1 tablet by mouth daily. [facility] ledipasvir- sofosbuvir (HARVONI) 90-400 mg per tablet 05-06 00:00: 00 Yes 1{tbl} Take 1 tablet by mouth daily. [facility] ledipasvir- sofosbuvir (HARVONI) 90-400 mg per tablet 05-06 00:00: 00 Yes 1{tbl} Take 1 tablet by mouth daily. [facility] ledipasvir- sofosbuvir (HARVONI) 90-400 mg per tablet 05-06 00:00: 00 Yes 1{tbl} Take 1 tablet by mouth daily. [facility] ledipasvir- sofosbuvir (HARVONI) 90-400 mg per tablet 05-06 00:00: 00 Yes 1{tbl} Take 1 tablet by mouth daily. [facility] ledipasvir- sofosbuvir (HARVONI) 90-400 mg per tablet 05-06 00:00: 00 Yes 1{tbl} Take 1 tablet by mouth daily. [facility] ledipasvir- sofosbuvir (HARVONI) 90-400 mg per tablet 05-06 00:00: 00 Yes 1{tbl} Take 1 tablet by mouth daily. [facility] ledipasvir- sofosbuvir (HARVONI) 90-400 mg per tablet 05-06 00:00: 00 Yes 1{tbl} Take 1 tablet by mouth daily. [facility] ledipasvir- sofosbuvir (HARVONI) 90-400 mg per tablet 05-06 00:00: 00 Yes 1{tbl} Take 1 tablet by mouth daily. [facility] ledipasvir- sofosbuvir (HARVONI) 90-400 mg per tablet 05-06 00:00: 00 Yes 1{tbl} Take 1 tablet by mouth daily. [facility] ledipasvir- sofosbuvir (HARVONI) 90-400 mg per tablet 05-06 00:00: 00 Yes 1{tbl} Take 1 tablet by mouth daily. [facility] ledipasvir- sofosbuvir (HARVONI) 90-400 mg per tablet 05-06 00:00: 00 Yes 1{tbl} Take 1 tablet by mouth daily. [facility] ledipasvir- sofosbuvir (HARVONI) 90-400 mg per tablet 05-06 00:00: 00 Yes 1{tbl} Take 1 tablet by mouth daily. [facility] ledipasvir- sofosbuvir (HARVONI) 90-400 mg per tablet 05-06 00:00: 00 Yes 1{tbl} Take 1 tablet by mouth daily. [facility] ledipasvir- sofosbuvir (HARVONI) 90-400 mg per tablet 05-06 00:00: 00 Yes 1{tbl} Take 1 tablet by mouth daily. [facility] ledipasvir- sofosbuvir (HARVONI) 90-400 mg per tablet 05-06 00:00: 00 Yes 1{tbl} Take 1 tablet by mouth daily. [facility] ledipasvir- sofosbuvir (HARVONI) 90-400 mg per tablet 05-06 00:00: 00 Yes 1{tbl} Take 1 tablet by mouth daily. [facility] ledipasvir- sofosbuvir (HARVONI) 90-400 mg per tablet 05-06 00:00: 00 Yes 1{tbl} Take 1 tablet by mouth daily. [facility] ledipasvir- sofosbuvir (HARVONI) 90-400 mg per tablet 05-06 00:00: 00 Yes 1{tbl} Take 1 tablet by mouth daily. [facility] ledipasvir- sofosbuvir (HARVONI) 90-400 mg per tablet 05-06 00:00: 00 Yes 1{tbl} Take 1 tablet by mouth daily. [facility] ledipasvir- sofosbuvir (HARVONI) 90-400 mg per tablet 05-06 00:00: 00 Yes 1{tbl} Take 1 tablet by mouth daily. [facility] ledipasvir- sofosbuvir (HARVONI) 90-400 mg per tablet 05-06 00:00: 00 Yes 1{tbl} Take 1 tablet by mouth daily. [facility] ledipasvir- sofosbuvir (HARVONI) 90-400 mg per tablet 05-06 00:00: 00 Yes 1{tbl} Take 1 tablet by mouth daily. [facility] hydrocodone /acetaminop hen (NORCO ORAL) 02-26 14:49: 38 Yes 1{tbl} Take 1 tablet by mouth as needed. [facility] hydrocodone /acetaminop hen (NORCO ORAL) 02-26 14:49: 38 Yes 1{tbl} Take 1 tablet by mouth as needed. [facility] hydrocodone /acetaminop hen (NORCO ORAL) 02-26 14:49: 38 Yes 1{tbl} Take 1 tablet by mouth as needed. [facility] hydrocodone /acetaminop hen (NORCO ORAL) 02-26 14:49: 38 Yes 1{tbl} Take 1 tablet by mouth as needed. [facility] hydrocodone /acetaminop hen (NORCO ORAL) 02-26 14:49: 38 Yes 1{tbl} Take 1 tablet by mouth as needed. [facility] hydrocodone /acetaminop hen (NORCO ORAL) 02-26 14:49: 38 Yes 1{tbl} Take 1 tablet by mouth as needed. [facility] hydrocodone /acetaminop hen (NORCO ORAL) 02-26 14:49: 38 Yes 1{tbl} Take 1 tablet by mouth as needed. [facility] hydrocodone /acetaminop hen (NORCO ORAL) 02-26 14:49: 38 Yes 1{tbl} Take 1 tablet by mouth as needed. [facility] hydrocodone /acetaminop hen (NORCO ORAL) 02-26 14:49: 38 Yes 1{tbl} Take 1 tablet by mouth as needed. [facility] hydrocodone /acetaminop hen (NORCO ORAL) 02-26 14:49: 38 Yes 1{tbl} Take 1 tablet by mouth as needed. [facility] hydrocodone /acetaminop hen (NORCO ORAL) 02-26 14:49: 38 Yes 1{tbl} Take 1 tablet by mouth as needed. [facility] hydrocodone /acetaminop hen (NORCO ORAL) 02-26 14:49: 38 Yes 1{tbl} Take 1 tablet by mouth as needed. [facility] hydrocodone /acetaminop hen (NORCO ORAL) 02-26 14:49: 38 Yes 1{tbl} Take 1 tablet by mouth as needed. [facility] (NORCO ORAL) 02-26 14:49: 38 Yes 1{tbl} Take 1 tablet by mouth as needed. [facility] (NORCO ORAL) 02-26 14:49: 38 Yes 1{tbl} Take 1 tablet by mouth as needed. [facility] (NORCO ORAL) 02-26 14:49: 38 Yes 1{tbl} Take 1 tablet by mouth as needed. [facility] hydrocodone /acetaminop hen (NORCO ORAL) 02-26 14:49: 38 Yes 1{tbl} Take 1 tablet by mouth as needed. [facility] hydrocodone /acetaminop hen (NORCO ORAL) 02-26 14:49: 38 Yes 1{tbl} Take 1 tablet by mouth as needed. [facility] hydrocodone /acetaminop hen (NORCO ORAL) 02-26 14:49: 38 Yes 1{tbl} Take 1 tablet by mouth as needed. [facility] hydrocodone /acetaminop hen (NORCO ORAL) 02-26 14:49: 38 Yes 1{tbl} Take 1 tablet by mouth as needed. [facility] hydrocodone /acetaminop hen (NORCO ORAL) 02-26 14:49: 38 Yes 1{tbl} Take 1 tablet by mouth as needed. [facility] hydrocodone /acetaminop hen (NORCO ORAL) 02-26 14:49: 38 Yes 1{tbl} Take 1 tablet by mouth as needed. [facility] hydrocodone /acetaminop hen (NORCO ORAL) 02-26 14:49: 38 Yes 1{tbl} Take 1 tablet by mouth as needed. [facility]NORCO ORAL[facility] 02-26 14:49: 38 Yes 1{tbl} Take 1 tablet by mouth as needed. [facility] hydrocodone /acetaminop hen (NORCO ORAL) 02-26 14:49: 38 Yes 1{tbl} Take 1 tablet by mouth as needed. [facility] hydrocodone /acetaminop hen (NORCO ORAL) 02-26 14:49: 38 Yes 1{tbl} Take 1 tablet by mouth as needed. [facility] hydrocodone /acetaminop hen (NORCO ORAL) 02-26 14:49: 38 Yes 1{tbl} Take 1 tablet by mouth as needed. [facility]NORCO ORAL) 02-26 14:49: 38 Yes 1{tbl} Take 1 tablet by mouth as needed. [facility] (NORCO ORAL) 02-26 14:49: 38 Yes 1{tbl} Take 1 tablet by mouth as needed. [facility] hydrocodone /acetaminop hen (NORCO ORAL) 02-26 14:49: 38 Yes 1{tbl} Take 1 tablet by mouth as needed. [facility] (NORCO ORAL) 02-26 14:49: 38 Yes 1{tbl} Take 1 tablet by mouth as needed. [facility] (NORCO ORAL) 02-26 14:49: 38 Yes 1{tbl} Take 1 tablet by mouth as needed. [facility] hydrocodone /acetaminop hen (NORCO ORAL) 02-26 14:49: 38 Yes 1{tbl} Take 1 tablet by mouth as needed. [facility] hydrocodone /acetaminop hen (NORCO ORAL) 02-26 09:49: 38 Yes 1{tbl} Take 1 tablet by mouth as needed. [facility] hydrocodone /acetaminop hen (NORCO ORAL) 02-26 09:49: 38 Yes 1{tbl} Take 1 tablet by mouth as needed. [facility] (NORCO ORAL) 02-26 09:49: 38 Yes 1{tbl} Take 1 tablet by mouth as needed. [facility] (NORCO ORAL) 02-26 09:49: 38 Yes 1{tbl} Take 1 tablet by mouth as needed. [facility] (NORCO ORAL) 02-26 09:49: 38 Yes 1{tbl} Take 1 tablet by mouth as needed. [facility] (NORCO ORAL) 02-26 09:49: 38 Yes 1{tbl} Take 1 tablet by mouth as needed. [facility] hydrocodone /acetaminop hen (NORCO ORAL) 02-26 09:49: 38 Yes 1{tbl} Take 1 tablet by mouth as needed. [facility] (NORCO ORAL) 02-26 09:49: 38 Yes 1{tbl} Take 1 tablet by mouth as needed. [facility] (NORCO ORAL) 02-26 09:49: 38 Yes 1{tbl} Take 1 tablet by mouth as needed. [facility] hydrocodone /acetaminop hen (NORCO ORAL) 02-26 09:49: 38 Yes 1{tbl} Take 1 tablet by mouth as needed. [facility] hydrocodone /acetaminop hen (NORCO ORAL) 02-26 09:49: 38 Yes 1{tbl} Take 1 tablet by mouth as needed. [facility] hydrocodone /acetaminop hen (NORCO ORAL) 02-26 09:49: 38 Yes 1{tbl} Take 1 tablet by mouth as needed. [facility] hydrocodone /acetaminop hen (NORCO ORAL) 02-26 09:49: 38 Yes 1{tbl} Take 1 tablet by mouth as needed. [facility] hydrocodone /acetaminop hen (NORCO ORAL) 02-26 09:49: 38 Yes 1{tbl} Take 1 tablet by mouth as needed. [facility]NORCO ORAL[facility] 02-26 09:49: 38 Yes 1{tbl} Take 1 tablet by mouth as needed. [facility] (NORCO ORAL) 02-26 09:49: 38 Yes 1{tbl} Take 1 tablet by mouth as needed. [facility] hydrocodone /acetaminop hen (NORCO ORAL) 02-26 09:49: 38 Yes 1{tbl} Take 1 tablet by mouth as needed. [facility] (NORCO ORAL) 02-26 09:49: 38 Yes 1{tbl} Take 1 tablet by mouth as needed. [facility] hydrocodone /acetaminop hen (NORCO ORAL) 02-26 09:49: 38 Yes 1{tbl} Take 1 tablet by mouth as needed. [facility] hydrocodone /acetaminop hen (NORCO ORAL) 02-26 09:49: 38 Yes 1{tbl} Take 1 tablet by mouth as needed. [facility] hydrocodone /acetaminop hen (NORCO ORAL) 02-26 09:49: 38 Yes 1{tbl} Take 1 tablet by mouth as needed. [facility] hydrocodone /acetaminop hen (NORCO ORAL) 02-26 09:49: 38 Yes 1{tbl} Take 1 tablet by mouth as needed. [facility] hydrocodone /acetaminop hen (NORCO ORAL) 02-26 09:49: 38 Yes 1{tbl} Take 1 tablet by mouth as needed. [facility] hydrocodone /acetaminop hen (NORCO ORAL) 02-26 09:49: 38 Yes 1{tbl} Take 1 tablet by mouth as needed. [facility] clobetasoL 0.05 % ointment 02-20 00:00: 00 Yes [id number] Apply to area(s) 2 (two) times daily. Avoid face, armpits, and groin. [facility] aug betamethaso ne dipropionat e 0.05 % cream 02-20 00:00: 00 Yes [id number] Apply to area(s) 2 (two) times daily. Avoid the face, armpits, and groin. [facility] clobetasoL 0.05 % ointment 02-20 00:00: 00 Yes [id number] Apply to area(s) 2 (two) times daily. Avoid face, armpits, and groin. [facility] aug betamethaso ne dipropionat e 0.05 % cream 02-20 00:00: 00 Yes [id number] Apply to area(s) 2 (two) times daily. Avoid the face, armpits, and groin. [facility] clobetasoL 0.05 % ointment 02-20 00:00: 00 Yes [id number] Apply to area(s) 2 (two) times daily. Avoid face, armpits, and groin. [facility] aug betamethaso ne dipropionat e 0.05 % cream 02-20 00:00: 00 Yes [id number] Apply to area(s) 2 (two) times daily. Avoid the face, armpits, and groin. [facility] clobetasoL 0.05 % ointment 2020-0 7-08 00:00: 00 Yes [id number] Apply to area(s) 2 (two) times daily. Avoid face, armpits, and groin. [facility] aug betamethaso ne dipropionat e 0.05 % cream 2020-0 7-08 00:00: 00 Yes [id number] Apply to area(s) 2 (two) times daily. Avoid the face, armpits, and groin. [facility] clobetasoL 0.05 % ointment 2020-0 7- 00:00: 00 Yes [id number] Apply to area(s) 2 (two) times daily. Avoid face, armpits, and groin. [facility] aug betamethaso ne dipropionat e 0.05 % cream 2020-0 02-20 00:00: 00 Yes [id number] Apply to area(s) 2 (two) times daily. Avoid the face, armpits, and groin. [facility] clobetasoL 0.05 % ointment 2020-0 - 00:00: 00 Yes [id number] Apply to area(s) 2 (two) times daily. Avoid face, armpits, and groin. [facility] aug betamethaso ne dipropionat e 0.05 % cream 2020-0 - 00:00: 00 Yes [id number] Apply to area(s) 2 (two) times daily. Avoid the face, armpits, and groin. [facility] clobetasoL 0.05 % ointment 2020-0 7-08 00:00: 00 Yes [id number] Apply to area(s) 2 (two) times daily. Avoid face, armpits, and groin. [facility] aug betamethaso ne dipropionat e 0.05 % cream 2020-0 7-08 00:00: 00 Yes [id number] Apply to area(s) 2 (two) times daily. Avoid the face, armpits, and groin. [facility] clobetasoL 0.05 % ointment 2020-0 -08 00:00: 00 Yes [id number] Apply to area(s) 2 (two) times daily. Avoid face, armpits, and groin. [facility] aug betamethaso ne dipropionat e 0.05 % cream 2020-0 - 00:00: 00 Yes [id number] Apply to area(s) 2 (two) times daily. Avoid the face, armpits, and groin. [facility] clobetasoL 0.05 % ointment 2020-0 - 00:00: 00 Yes [id number] Apply to area(s) 2 (two) times daily. Avoid face, armpits, and groin. [facility] mar betamethaso ne dipropionat e 0.05 % cream 2020-0 02-20 00:00: 00 Yes [id number] Apply to area(s) 2 (two) times daily. Avoid the face, armpits, and groin. [facility] clobetasoL 0.05 % ointment 2020-0 02-20 00:00: 00 Yes [id number] Apply to area(s) 2 (two) times daily. Avoid face, armpits, and groin. [facility] aug betamethaso ne dipropionat e 0.05 % cream 2020-0 02-20 00:00: 00 Yes [id number] Apply to area(s) 2 (two) times daily. Avoid the face, armpits, and groin. [facility] clobetasoL 0.05 % ointment 2020-0 02-20 00:00: 00 Yes [id number] Apply to area(s) 2 (two) times daily. Avoid face, armpits, and groin. [facility] aug betamethaso ne dipropionat e 0.05 % cream 2020-0 02-20 00:00: 00 Yes [id number] Apply to area(s) 2 (two) times daily. Avoid the face, armpits, and groin. [facility] clobetasoL 0.05 % ointment 2020-0 7-08 00:00: 00 Yes [id number] Apply to area(s) 2 (two) times daily. Avoid face, armpits, and groin. [facility] aug betamethaso ne dipropionat e 0.05 % cream 2020-0 02-20 00:00: 00 Yes [id number] Apply to area(s) 2 (two) times daily. Avoid the face, armpits, and groin. [facility] clobetasoL 0.05 % ointment 2020-0 02-20 00:00: 00 Yes [id number] Apply to area(s) 2 (two) times daily. Avoid face, armpits, and groin. [facility] aug betamethaso ne dipropionat e 0.05 % cream 2020-0 02-20 00:00: 00 Yes [id number] Apply to area(s) 2 (two) times daily. Avoid the face, armpits, and groin. [facility] clobetasoL 0.05 % ointment 2020-0 02-20 00:00: 00 Yes [id number] Apply to area(s) 2 (two) times daily. Avoid face, armpits, and groin. [facility] aug betamethaso ne dipropionat e 0.05 % cream 2020-0 02-20 00:00: 00 Yes [id number] Apply to area(s) 2 (two) times daily. Avoid the face, armpits, and groin. [facility] clobetasoL 0.05 % ointment 2020-0 02-20 00:00: 00 Yes [id number] Apply to area(s) 2 (two) times daily. Avoid face, armpits, and groin. [facility] aug betamethaso ne dipropionat e 0.05 % cream 2019-0 02-20 00:00: 00 Yes [id number] Apply to area(s) 2 (two) times daily. Avoid the face, armpits, and groin. [facility] clobetasoL 0.05 % ointment 2020-0 02-20 00:00: 00 Yes [id number] Apply to area(s) 2 (two) times daily. Avoid face, armpits, and groin. [facility] aug betamethaso ne dipropionat e 0.05 % cream 2020-0 7-08 00:00: 00 Yes [id number] Apply to area(s) 2 (two) times daily. Avoid the face, armpits, and groin. [facility] clobetasoL 0.05 % ointment 2020-0 7-08 00:00: 00 Yes [id number] Apply to area(s) 2 (two) times daily. Avoid face, armpits, and groin. [facility] aug betamethaso ne dipropionat e 0.05 % cream 2020-0 7-08 00:00: 00 Yes [id number] Apply to area(s) 2 (two) times daily. Avoid the face, armpits, and groin. [facility] clobetasoL 0.05 % ointment 2020-0 7- 00:00: 00 Yes [id number] Apply to area(s) 2 (two) times daily. Avoid face, armpits, and groin. [facility] aug betamethaso ne dipropionat e 0.05 % cream 2020-0 7-08 00:00: 00 Yes [id number] Apply to area(s) 2 (two) times daily. Avoid the face, armpits, and groin. [facility] clobetasoL 0.05 % ointment 2020-0 7-08 00:00: 00 Yes [id number] Apply to area(s) 2 (two) times daily. Avoid face, armpits, and groin. [facility] aug betamethaso ne dipropionat e 0.05 % cream 2020-0 7-08 00:00: 00 Yes [id number] Apply to area(s) 2 (two) times daily. Avoid the face, armpits, and groin. [facility] clobetasoL 0.05 % ointment 2020-0 7-08 00:00: 00 Yes [id number] Apply to area(s) 2 (two) times daily. Avoid face, armpits, and groin. [facility] aug betamethaso ne dipropionat e 0.05 % cream 2020-0 7-08 00:00: 00 Yes [id number] Apply to area(s) 2 (two) times daily. Avoid the face, armpits, and groin. [facility] clobetasoL 0.05 % ointment 2020-0 08 00:00: 00 Yes [id number] Apply to area(s) 2 (two) times daily. Avoid face, armpits, and groin. [facility] aug betamethaso ne dipropionat e 0.05 % cream 2020-0 -08 00:00: 00 Yes [id number] Apply to area(s) 2 (two) times daily. Avoid the face, armpits, and groin. [facility] clobetasoL 0.05 % ointment 2020-0 02-20 00:00: 00 Yes [id number] Apply to area(s) 2 (two) times daily. Avoid face, armpits, and groin. [facility] aug betamethaso ne dipropionat e 0.05 % cream 2020-0 02-20 00:00: 00 Yes [id number] Apply to area(s) 2 (two) times daily. Avoid the face, armpits, and groin. [facility] clobetasoL 0.05 % ointment 2020-0 02-20 00:00: 00 Yes [id number] Apply to area(s) 2 (two) times daily. Avoid face, armpits, and groin. [facility] aug betamethaso ne dipropionat e 0.05 % cream 2020-0 08 00:00: 00 Yes [id number] Apply to area(s) 2 (two) times daily. Avoid the face, armpits, and groin. [facility] clobetasoL 0.05 % ointment 2020-0 -08 00:00: 00 Yes [id number] Apply to area(s) 2 (two) times daily. Avoid face, armpits, and groin. [facility] aug betamethaso ne dipropionat e 0.05 % cream 2020-0 7-08 00:00: 00 Yes [id number] Apply to area(s) 2 (two) times daily. Avoid the face, armpits, and groin. [facility] clobetasoL 0.05 % ointment 2020-0 02-20 00:00: 00 Yes [id number] Apply to area(s) 2 (two) times daily. Avoid face, armpits, and groin. [facility] aug betamethaso ne dipropionat e 0.05 % cream 2020-0 02-20 00:00: 00 Yes [id number] Apply to area(s) 2 (two) times daily. Avoid the face, armpits, and groin. [facility] clobetasoL 0.05 % ointment 2020-0 02-20 00:00: 00 Yes [id number] Apply to area(s) 2 (two) times daily. Avoid face, armpits, and groin. [facility] mar betamethaso ne dipropionat e 0.05 % cream 2020-0 02-20 00:00: 00 Yes [id number] Apply to area(s) 2 (two) times daily. Avoid the face, armpits, and groin. [facility] clobetasoL 0.05 % ointment 2020-0 02-20 00:00: 00 Yes [id number] Apply to area(s) 2 (two) times daily. Avoid face, armpits, and groin. [facility] aug betamethaso ne dipropionat e 0.05 % cream 2020-0 02-20 00:00: 00 Yes [id number] Apply to area(s) 2 (two) times daily. Avoid the face, armpits, and groin. [facility] clobetasoL 0.05 % ointment 2020-0 02-20 00:00: 00 Yes [id number] Apply to area(s) 2 (two) times daily. Avoid face, armpits, and groin. [facility] aug betamethaso ne dipropionat e 0.05 % cream 2020-0 02-20 00:00: 00 Yes [id number] Apply to area(s) 2 (two) times daily. Avoid the face, armpits, and groin. [facility] clobetasoL 0.05 % ointment 2020-0 7-08 00:00: 00 Yes [id number] Apply to area(s) 2 (two) times daily. Avoid face, armpits, and groin. [facility] aug betamethaso ne dipropionat e 0.05 % cream 2020-0 7-08 00:00: 00 Yes [id number] Apply to area(s) 2 (two) times daily. Avoid the face, armpits, and groin. [facility] clobetasoL 0.05 % ointment 2020-0 7- 00:00: 00 Yes [id number] Apply to area(s) 2 (two) times daily. Avoid face, armpits, and groin. [facility] aug betamethaso ne dipropionat e 0.05 % cream 2020-0 02-20 00:00: 00 Yes [id number] Apply to area(s) 2 (two) times daily. Avoid the face, armpits, and groin. [facility] clobetasoL 0.05 % ointment 2020-0 - 00:00: 00 Yes [id number] Apply to area(s) 2 (two) times daily. Avoid face, armpits, and groin. [facility] aug betamethaso ne dipropionat e 0.05 % cream 2020-0 - 00:00: 00 Yes [id number] Apply to area(s) 2 (two) times daily. Avoid the face, armpits, and groin. [facility] clobetasoL 0.05 % ointment 2020-0 7-08 00:00: 00 Yes [id number] Apply to area(s) 2 (two) times daily. Avoid face, armpits, and groin. [facility] aug betamethaso ne dipropionat e 0.05 % cream 2020-0 7-08 00:00: 00 Yes [id number] Apply to area(s) 2 (two) times daily. Avoid the face, armpits, and groin. [facility] clobetasoL 0.05 % ointment 2020-0 -08 00:00: 00 Yes [id number] Apply to area(s) 2 (two) times daily. Avoid face, armpits, and groin. [facility] aug betamethaso ne dipropionat e 0.05 % cream 2020-0 - 00:00: 00 Yes [id number] Apply to area(s) 2 (two) times daily. Avoid the face, armpits, and groin. [facility] clobetasoL 0.05 % ointment 2020-0 - 00:00: 00 Yes [id number] Apply to area(s) 2 (two) times daily. Avoid face, armpits, and groin. [facility] mar betamethaso ne dipropionat e 0.05 % cream 2020-0 02-20 00:00: 00 Yes [id number] Apply to area(s) 2 (two) times daily. Avoid the face, armpits, and groin. [facility] clobetasoL 0.05 % ointment 2020-0 02-20 00:00: 00 Yes [id number] Apply to area(s) 2 (two) times daily. Avoid face, armpits, and groin. [facility] aug betamethaso ne dipropionat e 0.05 % cream 2020-0 02-20 00:00: 00 Yes [id number] Apply to area(s) 2 (two) times daily. Avoid the face, armpits, and groin. [facility] clobetasoL 0.05 % ointment 2020-0 02-20 00:00: 00 Yes [id number] Apply to area(s) 2 (two) times daily. Avoid face, armpits, and groin. [facility] aug betamethaso ne dipropionat e 0.05 % cream 2020-0 02-20 00:00: 00 Yes [id number] Apply to area(s) 2 (two) times daily. Avoid the face, armpits, and groin. [facility] clobetasoL 0.05 % ointment 2020-0 7-08 00:00: 00 Yes [id number] Apply to area(s) 2 (two) times daily. Avoid face, armpits, and groin. [facility] aug betamethaso ne dipropionat e 0.05 % cream 2020-0 02-20 00:00: 00 Yes [id number] Apply to area(s) 2 (two) times daily. Avoid the face, armpits, and groin. [facility] clobetasoL 0.05 % ointment 2020-0 02-20 00:00: 00 Yes [id number] Apply to area(s) 2 (two) times daily. Avoid face, armpits, and groin. [facility] aug betamethaso ne dipropionat e 0.05 % cream 2020-0 02-20 00:00: 00 Yes [id number] Apply to area(s) 2 (two) times daily. Avoid the face, armpits, and groin. [facility] clobetasoL 0.05 % ointment 2020-0 02-20 00:00: 00 Yes [id number] Apply to area(s) 2 (two) times daily. Avoid face, armpits, and groin. [facility] aug betamethaso ne dipropionat e 0.05 % cream 2020-0 02-20 00:00: 00 Yes [id number] Apply to area(s) 2 (two) times daily. Avoid the face, armpits, and groin. [facility] clobetasoL 0.05 % ointment 2020-0 02-20 00:00: 00 Yes [id number] Apply to area(s) 2 (two) times daily. Avoid face, armpits, and groin. [facility] aug betamethaso ne dipropionat e 0.05 % cream 2019-0 02-20 00:00: 00 Yes [id number] Apply to area(s) 2 (two) times daily. Avoid the face, armpits, and groin. [facility] clobetasoL 0.05 % ointment 2020-0 02-20 00:00: 00 Yes [id number] Apply to area(s) 2 (two) times daily. Avoid face, armpits, and groin. [facility] aug betamethaso ne dipropionat e 0.05 % cream 2020-0 7-08 00:00: 00 Yes [id number] Apply to area(s) 2 (two) times daily. Avoid the face, armpits, and groin. [facility] clobetasoL 0.05 % ointment 2020-0 7-08 00:00: 00 Yes [id number] Apply to area(s) 2 (two) times daily. Avoid face, armpits, and groin. [facility] aug betamethaso ne dipropionat e 0.05 % cream 2020-0 7-08 00:00: 00 Yes [id number] Apply to area(s) 2 (two) times daily. Avoid the face, armpits, and groin. [facility] clobetasoL 0.05 % ointment 2020-0 7- 00:00: 00 Yes [id number] Apply to area(s) 2 (two) times daily. Avoid face, armpits, and groin. [facility] aug betamethaso ne dipropionat e 0.05 % cream 2020-0 7-08 00:00: 00 Yes [id number] Apply to area(s) 2 (two) times daily. Avoid the face, armpits, and groin. [facility] clobetasoL 0.05 % ointment 2020-0 7-08 00:00: 00 Yes [id number] Apply to area(s) 2 (two) times daily. Avoid face, armpits, and groin. [facility] aug betamethaso ne dipropionat e 0.05 % cream 2020-0 7-08 00:00: 00 Yes [id number] Apply to area(s) 2 (two) times daily. Avoid the face, armpits, and groin. [facility] clobetasoL 0.05 % ointment 2020-0 7-08 00:00: 00 Yes [id number] Apply to area(s) 2 (two) times daily. Avoid face, armpits, and groin. [facility] aug betamethaso ne dipropionat e 0.05 % cream 2020-0 7-08 00:00: 00 Yes [id number] Apply to area(s) 2 (two) times daily. Avoid the face, armpits, and groin. [facility] clobetasoL 0.05 % ointment 2020-0 08 00:00: 00 Yes [id number] Apply to area(s) 2 (two) times daily. Avoid face, armpits, and groin. [facility] aug betamethaso ne dipropionat e 0.05 % cream 2020-0 -08 00:00: 00 Yes [id number] Apply to area(s) 2 (two) times daily. Avoid the face, armpits, and groin. [facility] clobetasoL 0.05 % ointment 2020-0 02-20 00:00: 00 Yes [id number] Apply to area(s) 2 (two) times daily. Avoid face, armpits, and groin. [facility] aug betamethaso ne dipropionat e 0.05 % cream 2020-0 02-20 00:00: 00 Yes [id number] Apply to area(s) 2 (two) times daily. Avoid the face, armpits, and groin. [facility] clobetasoL 0.05 % ointment 2020-0 02-20 00:00: 00 Yes [id number] Apply to area(s) 2 (two) times daily. Avoid face, armpits, and groin. [facility] aug betamethaso ne dipropionat e 0.05 % cream 2020-0 08 00:00: 00 Yes [id number] Apply to area(s) 2 (two) times daily. Avoid the face, armpits, and groin. [facility] clobetasoL 0.05 % ointment 2020-0 -08 00:00: 00 Yes [id number] Apply to area(s) 2 (two) times daily. Avoid face, armpits, and groin. [facility] aug betamethaso ne dipropionat e 0.05 % cream 2020-0 08 00:00: 00 Yes [id number] Apply to area(s) 2 (two) times daily. Avoid the face, armpits, and groin. [facility] clobetasoL 0.05 % ointment 2020-0 02-20 00:00: 00 Yes [id number] Apply to area(s) 2 (two) times daily. Avoid face, armpits, and groin. [facility] aug betamethaso ne dipropionat e 0.05 % cream 2020-0 - 00:00: 00 Yes [id number] Apply to area(s) 2 (two) times daily. Avoid the face, armpits, and groin. [facility] clobetasoL 0.05 % ointment 2020-0 02-20 00:00: 00 Yes [id number] Apply to area(s) 2 (two) times daily. Avoid face, armpits, and groin. [facility] clobetasoL 0.05 % ointment 2020-0 02-20 00:00: 00 Yes [id number] Apply to area(s) 2 (two) times daily. Avoid face, armpits, and groin. [facility] aug betamethaso ne dipropionat e 0.05 % cream 2020-0 02-20 00:00: 00 Yes [id number] Apply to area(s) 2 (two) times daily. Avoid the face, armpits, and groin. [facility] aug betamethaso ne dipropionat e 0.05 % cream 2020-0 02-20 00:00: 00 Yes [id number] Apply to area(s) 2 (two) times daily. Avoid the face, armpits, and groin. [facility] clobetasoL 0.05 % ointment 2020-0 - 00:00: 00 Yes [id number] Apply to area(s) 2 (two) times daily. Avoid face, armpits, and groin. [facility] aug betamethaso ne dipropionat e 0.05 % cream 2020-0 -08 00:00: 00 Yes [id number] Apply to area(s) 2 (two) times daily. Avoid the face, armpits, and groin. [facility] clobetasoL 0.05 % ointment 2020-0 7-08 00:00: 00 Yes [id number] Apply to area(s) 2 (two) times daily. Avoid face, armpits, and groin. [facility] aug betamethaso ne dipropionat e 0.05 % cream 2020-0 7-08 00:00: 00 Yes [id number] Apply to area(s) 2 (two) times daily. Avoid the face, armpits, and groin. [facility] clobetasoL 0.05 % ointment 2020-0 7-08 00:00: 00 Yes [id number] Apply to area(s) 2 (two) times daily. Avoid face, armpits, and groin. [facility] mar betamethaso ne dipropionat e 0.05 % cream 2020-0 7-08 00:00: 00 Yes [id number] Apply to area(s) 2 (two) times daily. Avoid the face, armpits, and groin. [facility] clobetasoL 0.05 % ointment 2020-0 7-08 00:00: 00 Yes [id number] Apply to area(s) 2 (two) times daily. Avoid face, armpits, and groin. [facility] clobetasoL 0.05 % ointment 2020-0 7-08 00:00: 00 Yes [id number] Apply to area(s) 2 (two) times daily. Avoid face, armpits, and groin. [facility] aug betamethaso ne dipropionat e 0.05 % cream 2020-0 7-08 00:00: 00 Yes [id number] Apply to area(s) 2 (two) times daily. Avoid the face, armpits, and groin. [facility] aug betamethaso ne dipropionat e 0.05 % cream 2020-0 7-08 00:00: 00 Yes [id number] Apply to area(s) 2 (two) times daily. Avoid the face, armpits, and groin. [facility] clobetasoL 0.05 % ointment 02-20 00:00: 00 Yes [id number] Apply to area(s) 2 (two) times daily. Avoid face, armpits, and groin. [facility] aug betamethaso ne dipropionat e 0.05 % cream 02-20 00:00: 00 Yes [id number] Apply to area(s) 2 (two) times daily. Avoid the face, armpits, and groin. [facility] clobetasoL 0.05 % ointment 02-20 00:00: 00 Yes [id number] Apply to area(s) 2 (two) times daily. Avoid face, armpits, and groin. [facility] aug betamethaso ne dipropionat e 0.05 % cream 02-20 00:00: 00 Yes [id number] Apply to area(s) 2 (two) times daily. Avoid the face, armpits, and groin. [facility] MELOXICAM 15 mg tablet 2017-08 00:00: 00 Yes TAKE 1 TABLET BY MOUTH EVERY DAY [facility] MELOXICAM 15 mg tablet 2017-08 00:00: 00 Yes TAKE 1 TABLET BY MOUTH EVERY DAY [facility] MELOXICAM 15 mg tablet 2017-08 00:00: 00 Yes TAKE 1 TABLET BY MOUTH EVERY DAY [facility] MELOXICAM 15 mg tablet 2017-08 00:00: 00 Yes TAKE 1 TABLET BY MOUTH EVERY DAY [facility] MELOXICAM 15 mg tablet 2017-08 00:00: 00 Yes TAKE 1 TABLET BY MOUTH EVERY DAY [facility] MELOXICAM 15 mg tablet 2017-08 00:00: 00 Yes TAKE 1 TABLET BY MOUTH EVERY DAY [facility] MELOXICAM 15 mg tablet 2017-08 00:00: 00 Yes TAKE 1 TABLET BY MOUTH EVERY DAY [facility] MELOXICAM 15 mg tablet 2017-08 00:00: 00 Yes TAKE 1 TABLET BY MOUTH EVERY DAY [facility] MELOXICAM 15 mg tablet 2017-08 00:00: 00 Yes TAKE 1 TABLET BY MOUTH EVERY DAY [facility] MELOXICAM 15 mg tablet 2017-08 00:00: 00 Yes TAKE 1 TABLET BY MOUTH EVERY DAY [facility] MELOXICAM 15 mg tablet 2017-08 00:00: 00 Yes TAKE 1 TABLET BY MOUTH EVERY DAY [facility] MELOXICAM 15 mg tablet 2017-08 00:00: 00 Yes TAKE 1 TABLET BY MOUTH EVERY DAY [facility] MELOXICAM 15 mg tablet 2017-08 00:00: 00 Yes TAKE 1 TABLET BY MOUTH EVERY DAY [facility] MELOXICAM 15 mg tablet 2017-08 00:00: 00 Yes TAKE 1 TABLET BY MOUTH EVERY DAY [facility] MELOXICAM 15 mg tablet 2017-08 00:00: 00 Yes TAKE 1 TABLET BY MOUTH EVERY DAY [facility] MELOXICAM 15 mg tablet 2017-08 00:00: 00 Yes TAKE 1 TABLET BY MOUTH EVERY DAY [facility] MELOXICAM 15 mg tablet 2017-08 00:00: 00 Yes TAKE 1 TABLET BY MOUTH EVERY DAY [facility] MELOXICAM 15 mg tablet 2017-08 00:00: 00 Yes TAKE 1 TABLET BY MOUTH EVERY DAY [facility] MELOXICAM 15 mg tablet 2017-08 00:00: 00 Yes TAKE 1 TABLET BY MOUTH EVERY DAY [facility] MELOXICAM 15 mg tablet 2017-08 00:00: 00 Yes TAKE 1 TABLET BY MOUTH EVERY DAY [facility] MELOXICAM 15 mg tablet 2017-08 00:00: 00 Yes TAKE 1 TABLET BY MOUTH EVERY DAY [facility] MELOXICAM 15 mg tablet 2017-08 00:00: 00 Yes TAKE 1 TABLET BY MOUTH EVERY DAY [facility] MELOXICAM 15 mg tablet 2017-08 00:00: 00 Yes TAKE 1 TABLET BY MOUTH EVERY DAY [facility] MELOXICAM 15 mg tablet 2017-08 00:00: 00 Yes TAKE 1 TABLET BY MOUTH EVERY DAY [facility] MELOXICAM 15 mg tablet 2017-08 00:00: 00 Yes TAKE 1 TABLET BY MOUTH EVERY DAY [facility] MELOXICAM 15 mg tablet 2017-08 00:00: 00 Yes TAKE 1 TABLET BY MOUTH EVERY DAY [facility] MELOXICAM 15 mg tablet 2017-08 00:00: 00 Yes TAKE 1 TABLET BY MOUTH EVERY DAY [facility] MELOXICAM 15 mg tablet 2017-08 00:00: 00 Yes TAKE 1 TABLET BY MOUTH EVERY DAY [facility] MELOXICAM 15 mg tablet 2017-08 00:00: 00 Yes TAKE 1 TABLET BY MOUTH EVERY DAY [facility] MELOXICAM 15 mg tablet 2017-08 00:00: 00 Yes TAKE 1 TABLET BY MOUTH EVERY DAY [facility] MELOXICAM 15 mg tablet 2017-08 00:00: 00 Yes TAKE 1 TABLET BY MOUTH EVERY DAY [facility] MELOXICAM 15 mg tablet 2017-08 00:00: 00 Yes TAKE 1 TABLET BY MOUTH EVERY DAY [facility] MELOXICAM 15 mg tablet 2017-08 00:00: 00 Yes TAKE 1 TABLET BY MOUTH EVERY DAY [facility] MELOXICAM 15 mg tablet 2017-08 00:00: 00 Yes TAKE 1 TABLET BY MOUTH EVERY DAY [facility] MELOXICAM 15 mg tablet 2017-08 00:00: 00 Yes TAKE 1 TABLET BY MOUTH EVERY DAY [facility] MELOXICAM 15 mg tablet 2017-08 00:00: 00 Yes TAKE 1 TABLET BY MOUTH EVERY DAY [facility] MELOXICAM 15 mg tablet 2017-08 00:00: 00 Yes TAKE 1 TABLET BY MOUTH EVERY DAY [facility] MELOXICAM 15 mg tablet 2017-08 00:00: 00 Yes TAKE 1 TABLET BY MOUTH EVERY DAY [facility] MELOXICAM 15 mg tablet 2017-08 00:00: 00 Yes TAKE 1 TABLET BY MOUTH EVERY DAY [facility] MELOXICAM 15 mg tablet 2017-08 00:00: 00 Yes TAKE 1 TABLET BY MOUTH EVERY DAY [facility] MELOXICAM 15 mg tablet 2017-08 00:00: 00 Yes TAKE 1 TABLET BY MOUTH EVERY DAY [facility] MELOXICAM 15 mg tablet 2017-08 00:00: 00 Yes TAKE 1 TABLET BY MOUTH EVERY DAY [facility] MELOXICAM 15 mg tablet 2017-08 00:00: 00 Yes TAKE 1 TABLET BY MOUTH EVERY DAY [facility] MELOXICAM 15 mg tablet 2017-08 00:00: 00 Yes TAKE 1 TABLET BY MOUTH EVERY DAY [facility] MELOXICAM 15 mg tablet 2017-08 00:00: 00 Yes TAKE 1 TABLET BY MOUTH EVERY DAY [facility] MELOXICAM 15 mg tablet 2017-08 00:00: 00 Yes TAKE 1 TABLET BY MOUTH EVERY DAY [facility] MELOXICAM 15 mg tablet 2017-08 00:00: 00 Yes TAKE 1 TABLET BY MOUTH EVERY DAY [facility] MELOXICAM 15 mg tablet 2017-08 00:00: 00 Yes TAKE 1 TABLET BY MOUTH EVERY DAY [facility] MELOXICAM 15 mg tablet 2017-08 00:00: 00 Yes TA[facility] 1 [facility] 2017-08 00:00: 00 Yes TAKE 1 TABLET BY MOUTH EVERY DAY [facility] MELOXICAM 15 mg tablet 2017-08 00:00: 00 Yes TAKE 1 TABLET BY MOUTH EVERY DAY [facility] MELOXICAM 15 mg tablet 2017-08 00:00: 00 Yes TAKE 1 TABLET BY MOUTH EVERY DAY [facility] MELOXICAM 15 mg tablet 2017-08 00:00: 00 06-30 00:00 :00 No TAKE 1 TABLET BY MOUTH EVERY DAY [facility] MELOXICAM 15 mg tablet 2017-08 00:00: 00 06-30 00:00 :00 No TAKE 1 TABLET BY MOUTH EVERY DAY [facility] hydrocodone /acetaminop hen (NORCO ORAL) 2017-08 13:59: 03 Yes 1{tbl} Take 1 tablet by mouth as needed. [facility] (NORCO ORAL) 2017-08 13:59: 03 Yes 1{tbl} Take 1 tablet by mouth as needed. [facility] (NORCO ORAL) 2017-08 13:59: 03 Yes 1{tbl} Take 1 tablet by mouth as needed. [facility]op [facility] (NORCO ORAL) 2017-08 13:59: 03 Yes 1{tbl} Take 1 tablet by mouth as needed. [facility] hydrocodone /acetaminop hen (NORCO ORAL) 2017-08 13:59: 03 Yes 1{tbl} Take 1 tablet by mouth as needed. [facility] hydrocodone /acetaminop hen (NORCO ORAL) 2017-08 13:59: 03 Yes 1{tbl} Take 1 tablet by mouth as needed. [facility] hydrocodone /acetaminop hen (NORCO ORAL) 2017-08 13:59: 03 Yes 1{tbl} Take 1 tablet by mouth as needed. [facility] hydrocodone /acetaminop hen (NORCO ORAL) 2017-08 13:59: 03 Yes 1{tbl} Take 1 tablet by mouth as needed. [facility] nortriptyli ne 25 mg capsule 2017-08 00:00: 00 Yes 25mg Take 1 capsule by mouth at bedtime. [facility] nortriptyli ne 25 mg capsule 2017-08 00:00: 00 Yes 25mg Take 1 capsule by mouth at bedtime. [facility] nortriptyli ne 25 mg capsule 2017-08 00:00: 00 Yes 25mg Take 1 capsule by mouth at bedtime. [facility] nortriptyli ne 25 mg capsule 2017-08 00:00: 00 Yes 25mg Take 1 capsule by mouth at bedtime. [facility] nortriptyli ne 25 mg capsule 2017-08 015 00:00: 00 Yes 25mg Take 1 capsule by mouth at bedtime. [facility] nortriptyli ne 25 mg capsule 2017-08 015 00:00: 00 Yes 25mg Take 1 capsule by mouth at bedtime. [facility] nortriptyli ne 25 mg capsule 2017-08 015 00:00: 00 Yes 25mg Take 1 capsule by mouth at bedtime. [facility] nortriptyli ne 25 mg capsule 2017-08 015 00:00: 00 Yes 25mg Take 1 capsule by mouth at bedtime. [facility] nortriptyli ne 25 mg capsule 2017-08 0 00:00: 00 Yes 25mg Take 1 capsule by mouth at bedtime. [facility] nortriptyli ne 25 mg capsule 2017-08 0 00:00: 00 Yes 25mg Take 1 capsule by mouth at bedtime. [facility] nortriptyli ne 25 mg capsule 2017-08 0 00:00: 00 Yes 25mg Take 1 capsule by mouth at bedtime. [facility] nortriptyli ne 25 mg capsule 2017-08 0 00:00: 00 Yes 25mg Take 1 capsule by mouth at bedtime. [facility] nortriptyli ne 25 mg capsule 2017-08 0 00:00: 00 Yes 25mg Take 1 capsule by mouth at bedtime. [facility] nortriptyli ne 25 mg capsule 2017-08 015 00:00: 00 Yes 25mg Take 1 capsule by mouth at bedtime. [facility] nortriptyli ne 25 mg capsule 2017-08 0 00:00: 00 Yes 25mg Take 1 capsule by mouth at bedtime. [facility] nortriptyli ne 25 mg capsule 2017-08 0 00:00: 00 Yes 25mg Take 1 capsule by mouth at bedtime. [facility] nortriptyli ne 25 mg capsule 2017-08 0 00:00: 00 Yes 25mg Take 1 capsule by mouth at bedtime. [facility] nortriptyli ne 25 mg capsule 2017-08 015 00:00: 00 Yes 25mg Take 1 capsule by mouth at bedtime. [facility] nortriptyli ne 25 mg capsule 2017-08 015 00:00: 00 Yes 25mg Take 1 capsule by mouth at bedtime. [facility] nortriptyli ne 25 mg capsule 2017-08 015 00:00: 00 Yes 25mg Take 1 capsule by mouth at bedtime. [facility] nortriptyli ne 25 mg capsule 2017-08 015 00:00: 00 Yes 25mg Take 1 capsule by mouth at bedtime. [facility] nortriptyli ne 25 mg capsule 2017-08 0 00:00: 00 Yes 25mg Take 1 capsule by mouth at bedtime. [facility] nortriptyli ne 25 mg capsule 2017-08 0 00:00: 00 Yes 25mg Take 1 capsule by mouth at bedtime. [facility] nortriptyli ne 25 mg capsule 2017-08 0 00:00: 00 Yes 25mg Take 1 capsule by mouth at bedtime. [facility] nortriptyli ne 25 mg capsule 2017-08 00:00: 00 Yes 25mg Take 1 capsule by mouth at bedtime. [facility] nortriptyli ne 25 mg capsule 2017-08 0 00:00: 00 Yes 25mg Take 1 capsule by mouth at bedtime. [facility] nortriptyli ne 25 mg capsule 2017-08 015 00:00: 00 Yes 25mg Take 1 capsule by mouth at bedtime. [facility] nortriptyli ne 25 mg capsule 2017-08 015 00:00: 00 Yes 25mg Take 1 capsule by mouth at bedtime. [facility] nortriptyli ne 25 mg capsule 2017-08 015 00:00: 00 Yes 25mg Take 1 capsule by mouth at bedtime. [facility] nortriptyli ne 25 mg capsule 2017-08 015 00:00: 00 Yes 25mg Take 1 capsule by mouth at bedtime. [facility] nortriptyli ne 25 mg capsule 2017-08 015 00:00: 00 Yes 25mg Take 1 capsule by mouth at bedtime. [facility] nortriptyli ne 25 mg capsule 2017-08 015 00:00: 00 Yes 25mg Take 1 capsule by mouth at bedtime. [facility] nortriptyli ne 25 mg capsule 2017-08 015 00:00: 00 Yes 25mg Take 1 capsule by mouth at bedtime. [facility] nortriptyli ne 25 mg capsule 2017-08 015 00:00: 00 Yes 25mg Take 1 capsule by mouth at bedtime. [facility] nortriptyli ne 25 mg capsule 2017-08 0 00:00: 00 Yes 25mg Take 1 capsule by mouth at bedtime. [facility] nortriptyli ne 25 mg capsule 2017-08 0 00:00: 00 Yes 25mg Take 1 capsule by mouth at bedtime. [facility] nortriptyli ne 25 mg capsule 2017-08 015 00:00: 00 Yes 25mg Take 1 capsule by mouth at bedtime. [facility] nortriptyli ne 25 mg capsule 2017-08 0 00:00: 00 Yes 25mg Take 1 capsule by mouth at bedtime. [facility] nortriptyli ne 25 mg capsule 2017-08 015 00:00: 00 Yes 25mg Take 1 capsule by mouth at bedtime. [facility] nortriptyli ne 25 mg capsule 2017-08 015 00:00: 00 Yes 25mg Take 1 capsule by mouth at bedtime. [facility] nortriptyli ne 25 mg capsule 2017-08 015 00:00: 00 Yes 25mg Take 1 capsule by mouth at bedtime. [facility] nortriptyli ne 25 mg capsule 2017-08 015 00:00: 00 Yes 25mg Take 1 capsule by mouth at bedtime. [facility] nortriptyli ne 25 mg capsule 2018-1 0-15 00:00: 00 Yes 25mg Take 1 capsule by mouth at bedtime. [facility] nortriptyli ne 25 mg capsule 2017-08 0-15 00:00: 00 Yes 25mg Take 1 capsule by mouth at bedtime. [facility] nortriptyli ne 25 mg capsule 2017-08 0-15 00:00: 00 Yes 25mg Take 1 capsule by mouth at bedtime. [facility] nortriptyli ne 25 mg capsule 2017-08 0-15 00:00: 00 Yes 25mg Take 1 capsule by mouth at bedtime. [facility] nortriptyli ne 25 mg capsule 2017-08 0-15 00:00: 00 Yes 25mg Take 1 capsule by mouth at bedtime. [facility] nortriptyli ne 25 mg capsule 2017-08 0-15 00:00: 00 Yes 25mg Take 1 capsule by mouth at bedtime. [facility] nortriptyli ne 25 mg capsule 2017-08 0-15 00:00: 00 Yes 25mg Take 1 capsule by mouth at bedtime. [facility] nortriptyli ne 25 mg capsule 2017-08 0-15 00:00: 00 Yes 25mg Take 1 capsule by mouth at bedtime. [facility] nortriptyli ne 25 mg capsule 2017-08 0-15 00:00: 00 Yes 25mg Take 1 capsule by mouth at bedtime. [facility] nortriptyli ne 25 mg capsule 2017-08 0-15 00:00: 00 Yes 25mg Take 1 capsule by mouth at bedtime. [facility] nortriptyli ne 25 mg capsule 2017-08 0-15 00:00: 00 Yes 25mg Take 1 capsule by mouth at bedtime. [facility] nortriptyli ne 25 mg capsule 2017-08 0-15 00:00: 00 Yes 25mg Take 1 capsule by mouth at bedtime. [facility] nortriptyli ne 25 mg capsule 2017-08 0-15 00:00: 00 Yes 25mg Take 1 capsule by mouth at bedtime. [facility] nortriptyli ne 25 mg capsule 2017-08 0-15 00:00: 00 Yes 25mg Take 1 capsule by mouth at bedtime. [facility] nortriptyli ne 25 mg capsule 2017-08 0-15 00:00: 00 Yes 25mg Take 1 capsule by mouth at bedtime. [facility] nortriptyli ne 25 mg capsule 2017-08 0-15 00:00: 00 Yes 25mg Take 1 capsule by mouth at bedtime. [facility] nortriptyli ne 25 mg capsule 2017-08 0-15 00:00: 00 Yes 25mg Take 1 capsule by mouth at bedtime. [facility] nortriptyli ne 25 mg capsule 2017-08 015 00:00: 00 Yes 25mg Take 1 capsule by mouth at bedtime. [facility] nortriptyli ne 25 mg capsule 2017-08 015 00:00: 00 Yes 25mg Take 1 capsule by mouth at bedtime. [facility] nortriptyli ne 25 mg capsule 2017-08 015 00:00: 00 Yes 25mg Take 1 capsule by mouth at bedtime. [facility] nortriptyli ne 25 mg capsule 2017-08 015 00:00: 00 Yes 25mg Take 1 capsule by mouth at bedtime. [facility] nortriptyli ne 25 mg capsule 2017-08 015 00:00: 00 Yes 25mg Take 1 capsule by mouth at bedtime. [facility] nortriptyli ne 25 mg capsule 2017-08 015 00:00: 00 Yes 25mg Take 1 capsule by mouth at bedtime. [facility] Tramadol HCl Tramadol HCl 04-04 00:00: 00 05-23 00:00 :00 No Jesse Daniels 1 tablet as needed [facility] Vital Signs Vital Name Observation Time Observation Value Comments Ken inman Systolic blood pressure 2022-09-04 18:44:00 153 mm[Hg] [facility] Diastolic blood pressure 2022-09-04 18:44:00 94 mm[Hg] [facility] Heart rate 2022-09-04 18:44:00 90 /min [facility] Body temperature 2022-09-04 18:41:00 36.39 Penny [facility] Body height 2022-09-04 18:41:00 149.9 cm [facility] Body weight 2022-09-04 18:41:00 47.991 kg [facility] BMI 2022-09-04 18:41:00 21.37 kg/m2 [facility] Oxygen saturation in Arterial blood by Pulse oximetry 2022-09-04 18:41:00 99 /min [facility] Systolic blood pressure 2022-06-30 16:01:00 167 mm[Hg] [facility] Diastolic blood pressure 2022-06-30 16:01:00 91 mm[Hg] [facility] Heart rate 2022-06-30 15:58:00 86 /min [facility] Body temperature 2022-06-30 15:58:00 36.83 Penny [facility] Respiratory rate 2022-06-30 15:58:00 18 /min [facility] Body height 2022-06-30 15:58:00 149.9 cm [facility] Body weight 2022-06-30 15:58:00 48.127 kg [facility] BMI 2022-06-30 15:58:00 21.43 kg/m2 [facility] Oxygen saturation in Arterial blood by Pulse oximetry 2022-06-30 15:58:00 100 /min [facility] Body height 2022-06-23 15:38:00 149.9 cm [facility] Systolic blood pressure 2022-06-23 14:30:00 167 mm[Hg] [facility] Diastolic blood pressure 2022-06-23 14:30:00 101 mm[Hg] [facility] Heart rate 2022-06-23 14:30:00 124 /min [facility] Body temperature 2022-06-23 14:30:00 37.67 Penny [facility] Body height 2022-06-23 14:30:00 149.9 cm [facility] Body weight 2022-06-23 14:30:00 47.129 kg [facility] BMI 2022-06-23 14:30:00 20.99 kg/m2 [facility] Systolic blood pressure 2022-06-22 15:45:00 175 mm[Hg] [facility] Diastolic blood pressure 2022-06-22 15:45:00 113 mm[Hg] [facility] Heart rate 2022-06-22 15:45:00 105 /min [facility] Body temperature 2022-06-22 15:45:00 36.72 Penny [facility] Respiratory rate 2022-06-22 15:45:00 18 /min [facility] Body height 2022-06-22 15:45:00 149.9 cm [facility] Body weight 2022-06-22 15:45:00 48.535 kg [facility] BMI 2022-06-22 15:45:00 21.61 kg/m2 [facility] Oxygen saturation in Arterial blood by Pulse oximetry 2022-06-22 15:45:00 100 /min [facility] Systolic blood pressure 2020-05-21 13:28:00 178 mm[Hg] [facility] Diastolic blood pressure 2020-05-21 13:28:00 115 mm[Hg] [facility] Heart rate 2020-05-21 13:28:00 87 /min [facility] Body temperature 2020-05-21 13:28:00 36.61 Penny [facility] Respiratory rate 2020-05-21 13:28:00 16 /min [facility] Body height 2020-05-21 13:28:00 149.9 cm [facility] Body weight 2020-05-21 13:28:00 46.403 kg [facility] BMI 2020-05-21 13:28:00 20.66 kg/m2 [facility] Systolic blood pressure 2020-05-16 19:20:00 187 mm[Hg] [facility] Diastolic blood pressure 2020-05-16 19:20:00 122 mm[Hg] [facility] Heart rate 2020-05-16 19:20:00 95 /min [facility] Body temperature 2020-05-16 19:20:00 36.94 Penny [facility] Respiratory rate 2020-05-16 19:20:00 16 /min [facility] Body height 2020-05-16 19:20:00 149.9 cm [facility] Body weight 2020-05-16 19:20:00 46.766 kg [facility] BMI 2020-05-16 19:20:00 20.82 kg/m2 [facility] Systolic blood pressure 2020-05-09 19:52:00 172 mm[Hg] [facility] Diastolic blood pressure 2020-05-09 19:52:00 108 mm[Hg] [facility] Heart rate 2020-05-09 19:52:00 100 /min [facility] Body temperature 2020-05-09 19:52:00 36.89 Penny [facility] Systolic blood pressure 2020-02-27 14:52:00 164 mm[Hg] Dr. Isaac informed of elevated BP. Patient asymptomatic. [facility] Diastolic blood pressure 2020-02-27 14:52:00 104 mm[Hg] Dr. Isaac informed of elevated BP. Patient asymptomatic. [facility] Heart rate 2020-02-27 14:49:00 89 /min [facility] Body temperature 2020-02-27 14:49:00 36.67 Penny [facility] Body height 2020-02-27 14:49:00 149.9 cm [facility] Body weight 2020-02-27 14:49:00 46.04 kg [facility] BMI 2020-02-27 14:49:00 20.50 kg/m2 [facility] Procedures Procedure Date / Time Performed Performing Clinician Source SCANNED LAB RESULTS 2022-09-22 06:01:00 Doctor Jeannie paredes, Naomi [facility] BASIC METABOLIC PANEL (NA, K, CL, CO2, GLUCOSE, BUN, CREATININE, CA) 2022-09-04 20:45:00 Gustavo Rucker [facility] IRON PANEL 2022-09-04 20:45:00 Gustavo Rucker [facility] CBC WITH DIFF 2022-09-04 20:45:00 Gustavo Rucker [facility] PROTHROMBIN TIME / INR 2022-09-04 20:45:00 Carine Rucker [facility] FERRITIN SERUM 2022-09-04 20:45:00 Moghe, Akshata [facility] HEPATIC FUNCTION PANEL ([id number]) (ALB,T.PRO,BILI T,BU/BC,ALT,AST,ALK PHOS) 2022-09-04 20:45:00 Gustavo Rucker [facility] SCANNED LAB RESULTS 2022-07-02 06:01:00 Doctor Jeannie paredes, Naomi [facility] HSV 1&2, VZV NAAT 2022-06-23 16:38:00 [facility] 2022-06-23 16:37:00 Nancy Odonnell sa [facility] DERMATOPATHOLOGY TISSUE EXAM 2022-06-23 00:00:00 Vinicius Garcia [facility] COMP. METABOLIC PANEL ([id number]) 2022-06-22 16:27:00 Sarah Mann [facility] CBC WITH DIFF 2022-06-22 16:27:00 Sarah Mann [facility] CONSENT/REFUSAL FOR DIAGNOSIS AND TREATMENT 2022-06-22 15:40:09 Doctor Unassigned, Naomi [facility] ASSIGNMENT OF BENEFITS 2020-12-31 14:46:50 Docto r Unassigned, Naomi [facility] DSU PRE-OP 2020-05-17 05:01:00 Doctor Unass igned, Naomi [facility] EXTERNAL PROVIDER RECORDS 2020-05-08 05:01:00 Do ctor Unassigned, Naomi [facility] US ABDOMEN LIMITED WITH DOPPLER 2020-03-04 19:04:54 Artis Isaac [facility] PROFILE / HEMOGRAM 2020-02-27 16:24:00 Artis Isaac [facility] ASSIGNMENT OF BENEFITS 2020-02-21 13:47:52 Docto r Unassigned, Naomi [facility] REFERRAL- REQUEST/RESPONSE 2019-11-14 05:01:00 D octor Unassigned, Naomi [facility] Encounters Start Date/Time End Date/Time Encounter Type Admission Type Attending Clinicians Care Facility Care Department Encounter ID Source 2021-09-10 11:16:[address] [facility] [id number] [facility] 2023-06-13 00:00:00 2023-06-13 00:00:00 Outpatient GC_GCBZW_Ka ayana_Ken PRIV [facility] [id number] [facility] 2022-10-07 00:00:00 2022-10-07 00:00:00 Pre Visit Outreach Caleb Silverio [facility] 1.0.114 350.1.13.10 4.2.7.2.686 [id number] General acute hospital 2022-09-22 00:00:00 2022-09-22 00:00:00 Orders Only Doctor Unassigned, Naomi [facility] 1.0.114 350.1.13.10 4.2.7.2.686 [id number] General acute hospital 2022-09-04 14:15:00 2022-09-04 14:30:00 Leaf Sticker Visit Lab, [facility] AT [facility] ..114 350.1.13.10 4.2.7.2.686 [id number] General acute hospital 2022-09-04 14:15:00 2022-09-04 14:15:00 Outpatient R GUSTAVO RUCKER [facility] [id number] General acute hospital 2022-09-04 13:00:00 2022-09-04 13:30:00 Office Visit [facility] ..114 350.1.13.10 4.2.7.2.686 [id number] General acute hospital 2022-09-04 00:00:00 2022-09-04 00:00:00 Telephone [facility] AT [facility] 1.840.114 350.1.13.10 4.2.7.2.686 [id number] General acute hospital 2022-07-02 00:00:00 2022-07-02 00:00:00 Orders Only Doctor Unassigned, Naomi [facility] 1.2.840.114 350.1.13.10 4.2.7.2.686 [id number] General acute hospital 2022-06-30 11:30:00 2022-06-30 11:45:00 Nurse Visit Visit, [facility] Dermatology Nurse Vinicius Garcia [facility] 1.20.114 350.1.13.10 4.2.7.2.686 [id number] General acute hospital 2022-06-30 09:50:00 2022-06-30 11:12:24 Outpatient TREVOR ARRINGTON [facility] [id number] [facility] 2022-06-30 09:50:00 2022-06-30 11:12:24 Office Visit Jovany Saeed Syed [facility] 1.2840.114 350.1.13.10 4.2.7.2.686 [id number] General acute hospital 2022-06-26 00:00:00 2022-06-26 00:00:00 Patient Secure Msg Doctor Unassigned, Naomi [facility] 1.2840.114 350.1.13.10 4.2.7.2.686 [id number] General acute hospital 2022-06-25 00:00:00 2022-06-25 00:00:00 Pre Visit Outreach Caleb Silverio 1.2840.114 350.1.13.10 4.2.7.2.686 [id number] General acute hospital 2022-06-23 09:30:00 2022-06-23 12:38:37 Outpatient VINICIUS DELACRUZ [facility] [id number] General acute hospital 2022-06-23 09:30:00 2022-06-23 12:38:37 Office Visit Laura Odonnell Brandon [facility] 1.114 350.1.13.10 4.2.7.2.686 [id number] General acute hospital 2022-06-23 09:15:00 2022-06-23 09:30:00 Leaf Sticker Visit [facility] Terrell Black [facility] 1.114 350.1.13.10 4.2.7.2.686 [id number] General acute hospital 2022-06-23 08:30:00 2022-06-23 09:00:00 Office Visit Jackie Ledezma [facility] 1.114 350.1.13.10 4.2.7.2.686 [id number] General acute hospital 2022-06-22 09:47:00 2022-06-22 11:55:00 Emergency X Sarah MANN [facility] ERT [id number] General acute hospital 2022-06-22 09:47:00 2022-06-22 11:55:00 Emergency Sarah Mann [facility] 1.114 350.1.13.10 4.2.7.2.686 [id number] General acute hospital 2021-01-30 14:47:34 2021-01-30 15:02:34 Leaf Sticker Visit Posusan, Adc Lab Artis Cloud [facility] 1.114 350.1.13.10 4.2.7.2.686 [id number] General acute hospital 2021-01-30 14:45:00 2021-01-30 14:45:00 Outpatient ARTIS TINAJERO [facility] [id number] General acute hospital 2021-01-01 00:00:00 2021-01-01 00:00:00 Telephone PonchoJosel Kourtney [facility] 1.2.840.114 350.1.13.10 4.2.7.2.686 [id number] General acute hospital 2020-12-31 09:45:22 2020-12-31 10:00:22 Leaf Sticker Visit 1, Adc Lab Artis Isaac [facility] 1.2.840.114 350.1.13.10 4.2.7.2.686 [id number] General acute hospital 2020-12-31 10:00:00 2020-12-31 10:00:00 Outpatient ARTIS TINAJERO [facility] [id number] General acute hospital 2020-12-31 00:00:00 2020-12-31 00:00:00 Orders Only Doctor Unassigned, Naomi [facility] 1.2.840.114 350.1.13.10 4.2.7.2.686 [id number] General acute hospital 2020-12-31 00:00:00 2020-12-31 00:00:00 Telephone PonchoJosel [facility] 1.2.840.114 350.1.13.10 4.2.7.2.686 [id number] General acute hospital 2020-12-03 00:00:00 2020-12-03 00:00:00 Telephone Artis Isaac [facility] 1.2.840.114 350.1.13.10 4.2.7.2.686 [id number] General acute hospital 2020-11-22 00:00:00 2020-11-22 00:00:00 Telephone Artis Isaac [facility] 1.2.840.114 350.1.13.10 4.2.7.2.686 [id number] General acute hospital 2020-09-11 00:00:00 2020-09-11 00:00:00 Telephone Artis Isaac [facility] 1.2.114 350.1.13.10 4.2.7.2.686 [id number] General acute hospital 2020-06-28 07:43:08 2020-06-28 07:58:08 Leaf Sticker Visit Pob, Adc Lab Main Artis Isaac [facility] 1.114 350.1.13.10 4.2.7.2.686 [id number] General acute hospital 2020-06-28 07:40:00 2020-06-28 07:40:00 Outpatient ARTIS TINAJERO [facility] [id number] General acute hospital 2020-06-28 00:00:00 2020-06-28 00:00:00 Telephone Artis Isaac [facility] 1..114 350.1.13.10 4.2.7.2.686 [id number] General acute hospital 2020-06-24 00:00:00 2020-06-24 00:00:00 Telephone Artis Isaac [facility] 1.114 350.1.13.10 4.2.7.2.686 [id number] General acute hospital 2020-05-21 08:19:22 2020-05-21 11:09:58 Office Visit Johanne Garcia [facility] 1.2.114 350.1.13.10 4.2.7.2.686 [id number] General acute hospital 2020-05-21 08:30:00 2020-05-21 08:30:00 Outpatient JOHANNE MORENO [facility] [id number] General acute hospital 2020-05-17 13:41:25 2020-05-17 13:56:25 Laboratory Only Only, Adc Test Efe Triana [facility] 1.84.114 350.1.13.10 4.2.7.2.686 [id number] General acute hospital 2020-05-17 13:45:00 2020-05-17 13:45:00 Outpatient R [facility] [id number] General acute hospital 2020-05-17 00:00:00 2020-05-17 00:00:00 Orders Only Doctor Unassigned, Naomi [facility] 1.84.114 350.1.13.10 4.2.7.2.686 [id number] General acute hospital 2020-05-16 14:11:45 2020-05-16 15:12:45 Office Visit Johanne Garcia [facility] 1.84.114 350.1.13.10 4.2.7.2.686 [id number] General acute hospital 2020-05-16 14:30:00 2020-05-16 14:30:00 Outpatient R JOHANNE GARCIA [facility] [id number] General acute hospital 2020-05-09 14:34:52 2020-05-10 07:25:01 Office Visit Satinder Arreguin [facility] 1.840.114 350.1.13.10 4.2.7.2.686 [id number] General acute hospital 2020-05-09 15:00:00 2020-05-09 15:00:00 Outpatient R SATINDER ARREGUIN [facility] [id number] General acute hospital 2020-05-08 13:30:00 2020-05-08 13:30:00 Outpatient R SATINDER ARREGUIN [facility] [id number] General acute hospital 2020-05-08 00:00:00 2020-05-08 00:00:00 Orders Only Doctor Unassigned, Naomi [facility] 1.2.840.114 350.1.13.10 4.2.7.2.686 [id number] General acute hospital 2020-05-07 00:00:00 2020-05-07 00:00:00 Telephone Poncho Artis [facility] 1.2.840.114 350.1.13.10 4.2.7.2.686 [id number] General acute hospital 2020-05-06 00:00:00 2020-05-06 00:00:00 Telephone Poncho Artis [facility] 1.2.840.114 350.1.13.10 4.2.7.2.686 [id number] General acute hospital 2020-04-04 00:00:00 2020-04-04 00:00:00 Telephone Poncho Atris [facility] 1.2.840.114 350.1.13.10 4.2.7.2.686 [id number] General acute hospital 2020-03-20 08:14:52 2020-03-20 08:29:52 Leaf Sticker Visit [facility] Artis Isaac [facility] 1.2.840.114 350.1.13.10 4.2.7.2.686 [id number] General acute hospital 2020-03-20 08:15:00 2020-03-20 08:15:00 Outpatient ARTIS TINAJERO [facility] [id number] General acute hospital 2020-03-07 00:00:00 2020-03-07 00:00:00 Telephone Artis Isaac [facility] 1.2.840.114 350.1.13.10 4.2.7.2.686 [id number] General acute hospital 2020-03-04 13:48:00 2020-03-04 23:59:00 Hospital Encounter Artis Isaac [facility] 1.2.840.114 350.1.13.10 4.2.7.2.686 [id number] General acute hospital 2020-03-04 13:48:59 2020-03-04 13:48:59 Outpatient R ARTIS ISAAC [facility] [id number] General acute hospital 2020-02-27 11:10:22 2020-02-27 11:38:19 Leaf Sticker Visit [facility].114 350.1.13.10 4.2.7.2.686 [id number] General acute hospital 2020-02-27 09:40:26 2020-02-27 11:07:59 Office Visit Artis Isaac [facility] 1.114 350.1.13.10 4.2.7.2.686 [id number] General acute hospital 2020-02-27 10:00:00 2020-02-27 10:00:00 Outpatient ARTIS TINAJERO [facility] [id number] General acute hospital 2020-02-21 08:48:34 2020-02-21 09:59:57 Office Visit Nghia Snider [facility] 1.114 350.1.13.10 4.2.7.2.686 [id number] General acute hospital 2020-02-21 09:15:00 2020-02-21 09:15:00 Outpatient VINICIUS DELACRUZ [facility] [id number] General acute hospital 2020-02-21 00:00:00 2020-02-21 00:00:00 Orders Only Doctor Unassigned, Naomi [facility] 1.114 350.1.13.10 4.2.7.2.686 [id number] General acute hospital 2019-11-15 08:50:08 2019-11-22 11:18:53 Telemedici ne Visit Provider, [facility] 1.2.840.114 350.1.13.10 4.2.7.2.686 [id number] General acute hospital 2019-11-15 08:50:08 2019-11-22 11:18:53 Telemedici ne Visit Provider, [facility] 1.2.840.114 350.1.13.10 4.2.7.2.686 [id number] 2019-11-17 00:00:00 2019-11-17 00:00:00 Telephone Provider, [facility] 1.2.840.114 350.1.13.10 4.2.7.2.686 [id number] General acute hospital 2019-11-16 13:00:00 2019-11-16 13:00:00 Outpatient KEN LOPEZ [facility] [id number] [facility] 2019-11-14 00:00:00 2019-11-14 00:00:00 Orders Only Doctor Unassigned, Naomi [facility] 1.2.840.114 350.1.13.10 4.2.7.2.686 [id number] General acute hospital 2019-11-14 00:00:00 2019-11-14 00:00:00 Orders Only Doctor Unassigned, Naomi [facility] 1.2.840.114 350.1.13.10 4.2.7.2.686 [id number] 2019-11-12 17:51:00 2019-11-12 17:51:00 Outpatient [facility] [id number] [facility] 2019-10-31 09:22:00 2019-10-31 09:22:00 Outpatient [facility] [id number] [facility] 2018-05-10 16:59:00 2018-05-10 16:59:00 Out[facility] [address] [facility] [place] [facility] [id number] [facility] 2018-04-22 10:48:00 2018-04-22 10:48:00 Out[facility] [address] [facility] [place] [facility] [id number] [facility] 2018-04-14 11:50:00 2018-04-14 11:50:00 Outpatient [facility] [address] [facility] [place] [facility] [id number] [facility] 2018-04-08 10:58:00 2018-04-08 10:58:00 Outpatient [facility] [address] [facility] [place] [facility] [id number] [facility] 2018-04-04 09:00:00 2018-04-04 09:00:00 Outpatient [facility] [address] [facility] [place] [facility] [id number] [facility] 2018-02-01 14:45:00 2018-02-01 14:45:00 Outpatient [facility] [address] [facility] [place] [facility] [id number] [facility] 2018-01-18 08:30:00 2018-01-18 08:30:00 Outpatient [facility] [address] [facility] [id number] [facility] Results Test Description Test Time Test Comments Results Result Co mments Source [facility] WITH [id number] 16:37:25* Test Item Value Reference Range Interpretation Comme nts WBC (test code = 6690-2) See_Comment [Automated Vocalocitya ge] The system which generated this result transmitted reference range: 4.30 - 11.10 10*3/?L. The reference range was not used to interpret this result as normal/abnormal. RBC (test code = 789-8) See_Comment [Automated messa ge] The system which generated this result transmitted reference range: 3.93 - 5.25 10*6/?L. The reference range was not used to interpret this result as normal/abnormal. HGB (test code = 718-7) 15.9 g/dL 11.6-15.0 H HCT (test code = 4544-3) 44.5 % 35.7-45.2 MCV (test code = 787-2) 96.7 fL 80.6-95.5 H MCH (test code = 785-6) 34.6 pg 25.9-32.8 H MCHC (test code = 786-4) 35.7 g/dL 31.6-35.1 H RDW-SD (test code = 58900-2) 40.8 fL 39.0-49.9 RDW-CV (test code = 788-0) 11.3 % 12.0-15.5 L PLT (test code = 777-3) See_Comment [Automated messa ge] The system which generated this result transmitted reference range: 166 - 358 10*3/?L. The reference range was not used to interpret this result as normal/abnormal. MPV (test code = 34705-4) 9.3 fL 9.5-12.9 L NRBC/100 WBC (test code = 0079501812) See_Comment [Automated Fitwall ssage] The system which generated this result transmitted reference range: 0.0 - 10.0 /100 WBCs. The reference range was not used to interpret this result as normal/abnormal. NRBC x10^3 (test code = 8967681517) See_Comment [Automated messa ge] The system which generated this result transmitted reference range: 10*3/?L. The reference range was not used to interpret this result as normal/abnormal. GRAN MAT (NEUT) % (test code = 770-8) 65.2 % IMM GRAN % (test code = 6659396526) 0.40 % LYMPH % (test code = 736-9) 24.2 % MONO % (test code = 5905-5) 7.7 % EOS % (test code = 713-8) 1.8 % BASO % (test code = 706-2) 0.7 % GRAN MAT x10^3(ANC) (test code = 4167451625) 6.69 10*3/uL 1.88-7.09 IMM GRAN x10^3 (test code = 9758174303) 0.04 10*3/uL 0.00-0.06 LYMPH x10^3 (test code = 731-0) 2.48 10*3/uL 1.32-3.29 MONO x10^3 (test code = 742-7) 0.79 10*3/uL 0.33-0.92 EOS x10^3 (test code = 711-2) 0.18 10*3/uL 0.03-0.39 BASO x10^3 (test code = 704-7) 0.07 10*3/uL 0.01-0.07 Lab Interpretation (test code = 59400-2) Abnormal [facility] ABDOMEN LIMITED WITH [id number] 23:06:461. ?Unremarkable ultrasound of the liver with no evidence of focal lesionsor intrahepatic biliary ductal dilatation.2. ?Prior cholecystectomy. Preliminary Report Dictated by Resident: Yoni Velasco MD., have reviewed this study and agree with theabove report.EXAM: US ABDOMEN LI MITED WITH DOPPLER HISTORY: 44 years-old Female with Chronic hep C, requesting evaluation forchronic liver disease. TECHNIQUE: Limited abdominal ultrasound was performed focused on the liver,biliary system, and pancreas. Main portal vein was evaluated with color andspectral Doppler imaging. Manager Study images were obtained for therecord. COMPARISON: None, CT abdomen and pelvis with and without contrast,08/06/2011 FINDINGS: LIVER: Length: 11.5 cm.Parenchyma: Normal hepatic echogenicity and echotexture. No focal lesion isdetected.Portal vein: Hepatopetal flow present in the main portal vein.MPV diameter: 0.8 cm.MPV velocity: 34.4 cm/s. GALLBLADDER:Surgically absent BILE DUCTS:No intra- or e xtrahepatic biliary dilatation..Common Duct diameter: 0.4 mm. PANCREAS: Limited visualization due to shadowing from bowel gas.. Imagedhead and body of pancreas are unremarkable. AORTA:Abdominal aortais normal in caliber where visualized. Diameter of theproximal abdominal aorta is 1.8 cm. IVC:IVC is normal in appearance where visualized. OTHER: Imaged portions of the right kidney are unremarkable. [facility], Radiant Results Inft User - 03/04/2020 6:07 PM CDTEXAM: US ABDOMEN LIMITED WITH DOPPLERHISTORY: 44 years-old Female with Chronic hep C, requesting evaluation forchronic liver disease.TECHNIQUE: Limited abdominal ultrasound was performed focused on the liver,biliary system, and pancreas. Main portal vein was evaluated with color andspectral Doppler imaging. Manager Study images were obtained for therecord.COMPARISON: None, CT abdomen and pelvis with and without contrast,08/06/2011FINDINGS: LIVER: Length: 11.5 cm.Parenchyma: Normal hepatic echogenicity and echotexture. No focal lesion isdetected.Portal vein: Hepatopetal flow present in the main portal vein.MPV diameter: 0.8 cm.MPV velocity: 34.4 cm/s.GALLBLADDER:Surgically absentBILE DUCTS:No intra- or extrahepatic biliary dilatation..Common Duct diameter: 0.4 mm.PANCREAS: Limited visualization due to shadowing from bowel gas.. Imagedhead and body of pancreas are unremarkable.AORTA:Abdominal aorta is normal in caliber where visualized. Diameter of theproximal abdominal aorta is 1.8 cm.IVC:IVC is normal in appearance where visualized. OTHER: Imaged portions of the right kidney are unremarkable.IMPRESSION1. Unremarkable ultrasound of the liver with no evidence of focal lesionsor intrahepatic biliary ductal dilatation.2. Prior cholecystectomy.Preliminary Report Dictated by Resident: Yoni Dunbar MD., have reviewed this study and agree with theabove report. [facility] / [id number] 17:39:00* Test Item Value Reference Range Interpretation Comme nts WBC (test code = 6690-2) See_Comment [Automated message] The system which generated this result transmitted reference range: 4.30 - 11.10 10*3/?L. The reference range was not used to interpret this result as normal/abnormal. RBC (test code = 789-8) See_Comment [Automated message] The system which generated this result transmitted reference range: 3.93 - 5.25 10*6/?L. The reference range was not used to interpret this result as normal/abnormal. HGB (test code = 718-7) 15.8 g/dL 11.6-15 H HCT (test code = 4544-3) 46.3 % 35.7-45.2 H MCH (test code = 785-6) 34.3 pg 25.9-32.8 H MCV (test code = 787-2) 100.4 fL 80.6-95.5 H MCHC (test code = 786-4) 34.1 g/dL 31.6-35.1 PLT (test code = 777-3) See_Comment [Automated message] The system which generated this result transmitted reference range: 166 - 358 10*3/?L. The reference range was not used to interpret this result as normal/abnormal. MPV (test code = 89876-1) 10.4 fL 9.5-12.9 RDW-CV (test code = 788-0) 11.3 % 12-15.5 L RDW-SD (test code = 29960-7) 41.4 fL 39-49.9 NRBC x10^3 (test code = 4412969231) <0.01 See_Comment [Automated Vocalocitya ge] The system which generated this result transmitted reference range: 10*3/?L. The reference range was not used to interpret this result as normal/abnormal. NRBC/100 WBC (test code = 3538949124) See_Comment [Automated Vocalocitya ge] The system which generated this result transmitted reference range: 0.0 - 10.0 /100 WBCs. The reference range was not used to interpret this result as normal/abnormal. IPF % (test code = 4542749632) Lab Interpretation (test code = 53723-2) Abnormal [facility] / [id number] 17:39:00* Test Item Value Reference Range Interpretation Comme nts WBC (test code = 6690-2) See_Comment [Automated message] The system which generated this result transmitted reference range: 4.30 - 11.10 10*3/?L. The reference range was not used to interpret this result as normal/abnormal. RBC (test code = 789-8) See_Comment [Automated message] The system which generated this result transmitted reference range: 3.93 - 5.25 10*6/?L. The reference range was not used to interpret this result as normal/abnormal. HGB (test code = 718-7) 15.8 g/dL 11.6-15 H HCT (test code = 4544-3) 46.3 % 35.7-45.2 H MCH (test code = 785-6) 34.3 pg 25.9-32.8 H MCV (test code = 787-2) 100.4 fL 80.6-95.5 H MCHC (test code = 786-4) 34.1 g/dL 31.6-35.1 PLT (test code = 777-3) See_Comment [Automated message] The system which generated this result transmitted reference range: 166 - 358 10*3/?L. The reference range was not used to interpret this result as normal/abnormal. MPV (test code = 68177-6) 10.4 fL 9.5-12.9 RDW-CV (test code = 788-0) 11.3 % 12-15.5 L RDW-SD (test code = 64565-5) 41.4 fL 39-49.9 NRBC x10^3 (test code = 2186352637) <0.01 See_Comment [Automated Vocalocitya ge] The system which generated this result transmitted reference range: 10*3/?L. The reference range was not used to interpret this result as normal/abnormal. NRBC/100 WBC (test code = 5978556875) See_Comment [Automated Vocalocitya morphCARD] The system which generated this result transmitted reference range: 0.0 - 10.0 /100 WBCs. The reference range was not used to interpret this result as normal/abnormal. IPF % (test code = 3972470632) Lab Interpretation (test code = 46222-6) Abnormal [facility]
--- NOTE | 2023-11-07 06:13 | EDPHYS ---
Physician Documentation [facility] Name: Chelsy Araujo Age: 48 yrs Sex: Female : 1975 Arrival Date: 11/07/2023 Time: 03:44 Bed 6 Private MD: ED Physician Sriram Bassett HPI: 11/06 04:45 This 48 yrs old Female presents to ER via Ambulatory with complaints of Headache. rt 04:45 Patient presents to the ED with about 3 days of a headache. Patient states that she has rt pain to her right jaw as well as swelling to that area as well. States that Tylenol, Excedrin has not adequately relieved her symptoms. Denies difficulty swallowing, he complains, symptoms are moderate severity, aching nature, no other aggravating or elevating factors.. 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 Flu vaccine is not up to date. - Social history:: Smoking status: Patient reports the use of cigarette tobacco products, smokes one-half pack cigarettes per day, Patient uses alcohol, occasionally. Patient/guardian denies using street drugs. - Family history:: not pertinent. ROS: 06:43 Constitutional: Negative for fever, chills, and weight loss, Cardiovascular: Negative rt for chest pain, palpitations, and edema, Respiratory: Negative for shortness of breath, cough, wheezing, and pleuritic chest pain, Abdomen/GI: Negative for abdominal pain, nausea, vomiting, diarrhea, and constipation, MS/Extremity: Negative for injury and deformity, Skin: Negative for injury, rash, and discoloration, 06:43 Neck: Positive for pain at rest, Negative for injury or acute deformity, 06:43 Neuro: Positive for headache, Negative for altered mental status, Exam: 06:43 Constitutional: This is a well developed, well nourished patient who is awake, alert, rt and in no acute distress. Head/Face: Normocephalic, atraumatic. Chest/axilla: Normal chest wall appearance and motion. Nontender with no deformity. No lesions are appreciated. Cardiovascular: Regular rate and rhythm with a normal S1 and S2. No gallops, murmurs, or rubs. Normal PMI, no JVD. No pulse deficits. Respiratory: Lungs have equal breath sounds bilaterally, clear to auscultation and percussion. No rales, rhonchi or wheezes noted. No increased work of breathing, no retractions or nasal flaring. Abdomen/GI: Soft, non-tender, with normal bowel sounds. No distension or tympany. No guarding or rebound. No evidence of tenderness throughout. Skin: Warm, dry with normal turgor. Normal color with no rashes, no lesions, and no evidence of cellulitis. MS/ Extremity: Pulses equal, no cyanosis. Neurovascular intact. Full, normal range of motion. Neuro: Awake and alert, GCS 15, oriented to person, place, time, and situation. Cranial nerves II-XII grossly intact. Motor strength 5/5 in all extremities. Sensory grossly intact. Cerebellar exam normal. Normal gait. 06:43 ENT: Dental caries noted to the right posterior lower molar. Vital Signs: 03:55 BP 181 / 103; Pulse 88; Resp 16; Pulse Ox 98% on R/A; Weight 45.36 kg (R); Height 4 ft. km8 11 in. (R); Pain 7/10; 06:35 BP 111 / 88; Pulse 69; Resp 20; Temp 97.3(TE); Pulse Ox 98% on R/A; Pain 0/10; tm6 03:55 Body Mass Index 20.20 (45.36 kg, 149.86 cm) km8 03:55 Pain Scale: Adult km8 06:35 Pain Scale: Adult tm6 [place] Coma Score: 03:55 Eye Response: spontaneous(4). Motor Response: obeys commands(6). Verbal Response: km8 oriented(5). Total: 15. MDM: 04:07 Patient medically screened. rt 06:44 Differential diagnosis: Internal hemorrhage, migraine, dental caries, odontogenic rt abscess. Data reviewed: vital signs, nurses notes. Independent interpretation of the following test(s) in the Emergency Department CT Scan: My interpretation is No intraoral hemorrhage, dictation of CT scan images. Care significantly affected by the following chronic conditions: Seizure disorder. Counseling: I had a detailed discussion with the patient and/or guardian regarding the historical points, exam findings, and any diagnostic results supporting the discharge/admit diagnosis, radiology results, the need for outpatient follow up, to return to the emergency department if symptoms worsen or persist or if there are any questions or concerns that arise at home. Response to treatment: the patient's symptoms have markedly improved after treatment. 11/06 04:15 Order name: CT Head Brain wo Cont rt 11/06 04:15 Order name: CT Soft Tissue Neck W/contr rt Administered Medications: 04:32 Drug: Ketorolac IVP 15 mg IVP once Route: IVP; Site: left antecubital; [facility] 07:36 Follow up: Response: No adverse reaction; Pain is decreased [facility] 04:32 Drug: metoCLOPramide IVP 10 mg IVP once; over 1 to 2 minutes Route: IVP; Site: left 8 antecubital; 06:30 Follow up: Response: No adverse reaction; Pain is decreased [facility] 04:32 Drug: diphenhydrAMINE IVP 25 mg IVP once Route: IVP; Site: left antecubital; km8 06:30 Follow up: Response: No adverse reaction; Pain is decreased [facility] 04:32 Drug: NS 0.9% IV 1000 ml IV at 1 bolus Per protocol; 1000 mL bolus Route: IV; Rate: 1 km8 bolus; Site: left antecubital; 06:30 Follow up: IV Status: Completed infusion; IV Intake: 1000ml 8 04:32 Drug: Magnesium Sulfate IVPB 2 grams IVPB once over 2 hrs Route: IVPB; Infused Over: 2 km8 hrs; Site: left antecubital; 06:30 Follow up: IV Status: Completed infusion; IV Intake: 50ml km8 Disposition Summary: 11/07/23 06:12 Discharge Ordered Notes: Location: Home rt Problem: new rt Symptoms: have improved rt Condition: Stable rt Diagnosis - Headache rt - Dental caries, unspecified rt Followup: rt - With: Private Physician - When: 2 - 3 days - Reason: Discharge Instructions: - Discharge Summary Sheet rt - Dental Caries, Adult rt - General Headache Without Cause rt Forms: - Medication Reconciliation Form rt - Thank You Letter rt - Antibiotic Education rt - Prescription Opioid Use rt - Patient Portal Instructions rt - Leadership Thank You Letter rt Prescriptions: - Amoxicillin 875 mg Oral Tablet - take 1 tablet ORAL route every 12 hours for 10 days; 20 tablet; Refills: 0, rt Product Selection Permitted Signatures: Dispatcher [employer] Sriram Ovalle MD MD rt Brooklyn Sánchez RN RN km8
--- NOTE | 2023-11-07 06:13 | ER ---
Nurse's Notes [facility] Name: Chelsy Araujo Age: 48 yrs Sex: Female : 1975 Arrival Date: 11/07/2023 Time: 03:44 Bed 6 Private MD: Diagnosis: Headache;Dental caries, unspecified Presentation: 11/06 03:55 Chief complaint: Patient states: pt reports 3 days of right sided BUCKNER radiating to neck km8 with dizziness. Coronavirus screen: Client denies travel out of the [place] in the last 14 days. Ebola Screen: No symptoms or risks identified at this time. Initial Sepsis Screen: Does the patient meet any 2 criteria? No. Patient's initial sepsis screen is negative. Does the patient have a suspected source of infection? No. Patient's initial sepsis screen is negative. Risk Assessment: Do you want to hurt yourself or someone else? Patient reports no desire to harm self or others. Onset of symptoms was November 04, 2023. 03:55 Method Of Arrival: Ambulatory km8 03:55 Acuity: BG 3 km8 Triage Assessment: 03:55 Headache History: The patient has had previous headaches and this one is different than km8 previous episodes, and this one is more severe than previous episodes. General: Appears in no apparent distress. uncomfortable, Behavior is calm, cooperative, appropriate for age. Pain: Complains of pain in right temporal area Pain radiates to right sternocleidomastoid Pain currently is 7 out of 10 on a pain scale. Quality of pain is described as throbbing, Pain began 2-3 days ago. Is continuous, Also complains of inability to concentrate. EENT: No signs and/or symptoms were reported regarding the EENT system. Neuro: Level of Consciousness is awake, alert, obeys commands, Oriented to person, place, time, situation, Reports headache in right that is the "worst ever", since 3 days ago. Cardiovascular: Denies chest pain, shortness of breath, Patient's skin is warm and dry. Respiratory: Airway is patent Respiratory effort is even, unlabored, Respiratory pattern is regular, symmetrical. GI: No signs and/or symptoms were reported involving the gastrointestinal system. : No signs and/or symptoms were reported regarding the genitourinary system. Derm: No signs and/or symptoms reported regarding the dermatologic system. Skin is intact, is healthy with good turgor, Skin is dry, Skin is pink, warm \\T\\ dry. normal, Skin temperature is warm. Musculoskeletal: No signs and/or symptoms reported regarding the musculoskeletal system. Range of motion: intact in all extremities. 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 Flu vaccine is not up to date. - Social history:: Smoking status: Patient reports the use of cigarette tobacco products, smokes one-half pack cigarettes per day, Patient uses alcohol, occasionally. Patient/guardian denies using street drugs. - Family history:: not pertinent. Screenin:55 [facility] ED Fall Risk Assessment (Adult) History of falling in the last 3 months, km8 including since admission No falls in past 3 months (0 pts) Confusion or Disorientation No (0 pts) Intoxicated or Sedated No (0 pts) Impaired Gait No (0 pts) Mobility Assist Device Used No (0 pt) Altered Elimination No (0 pt) Score/Fall Risk Level 0 - 2 = Low Risk Oriented to surroundings, Maintained a safe environment, Educated pt \\T\\ family on fall prevention, incl call for assistance when getting out of bed, Assessed \\T\\ reinforced patient's understanding of fall precautions. Abuse screen: Denies threats or abuse. Denies injuries from another. Nutritional screening: No deficits noted. Tuberculosis screening: No symptoms or risk factors identified. Assessment: 03:55 Reassessment: see triage assessment. Pain: Complains of pain in right temporal area km8 Pain currently is 7 out of 10 on a pain scale. Quality of pain is described as throbbing. 04:45 Reassessment: Patient appears in no apparent distress at this time. No changes from 8 previously documented assessment. Patient and/or family updated on plan of care and expected duration. Pain level reassessed. Patient is alert, oriented x 3, equal unlabored respirations, skin warm/dry/pink. 06:30 Reassessment: Patient appears in no apparent distress at this time. Patient and/or km8 family updated on plan of care and expected duration. Pain level reassessed. Patient is alert, oriented x 3, equal unlabored respirations, skin warm/dry/pink. Patient denies pain at this time. Patient states feeling better. Patient states symptoms have improved. Vital Signs: 03:55 BP 181 / 103; Pulse 88; Resp 16; Pulse Ox 98% on R/A; Weight 45.36 kg (R); Height 4 ft. km8 11 in. (R); Pain 7/10; 06:35 BP 111 / 88; Pulse 69; Resp 20; Temp 97.3(TE); Pulse Ox 98% on R/A; Pain 0/10; tm6 03:55 Body Mass Index 20.20 (45.36 kg, 149.86 cm) km8 03:55 Pain Scale: Adult km8 06:35 Pain Scale: Adult tm6 [place] Coma Score: 03:55 Eye Response: spontaneous(4). Motor Response: obeys commands(6). Verbal Response: km8 oriented(5). Total: 15. ED Course: 03:48 Patient arrived in ED. gm2 03:48 Sriram Bassett MD is Attending Physician. rt 03:55 Arm band placed on right wrist. km8 03:55 Patient has correct armband on for positive identification. Bed in low position. Call km8 light in reach. Side rails up X 1. Pulse ox on. NIBP on. Door closed. Noise minimized. Lights dimmed. Warm blanket given. 03:55 Patient maintains SpO2 saturation greater than 95% on room air. km8 04:05 Brooklyn Sánchez, TARA is Primary Nurse. km8 04:08 Triage completed. km8 04:47 CT Head Brain wo Cont In Process Unspecified. EDMS 04:50 CT Soft Tissue Neck W/contr In Process Unspecified. EDMS 06:30 Provided Education on: d/c teaching. km8 06:30 No provider procedures requiring assistance completed. IV discontinued, intact, km8 bleeding controlled, No redness/swelling at site. Pressure dressing applied. Administered Medications: 04:32 Drug: Ketorolac IVP 15 mg IVP once Route: IVP; Site: left antecubital; km8 07:36 Follow up: Response: No adverse reaction; Pain is decreased km8 04:32 Drug: metoCLOPramide IVP 10 mg IVP once; over 1 to 2 minutes Route: IVP; Site: left 8 antecubital; 06:30 Follow up: Response: No adverse reaction; Pain is decreased km8 04:32 Drug: diphenhydrAMINE IVP 25 mg IVP once Route: IVP; Site: left antecubital; km8 06:30 Follow up: Response: No adverse reaction; Pain is decreased km8 04:32 Drug: NS 0.9% IV 1000 ml IV at 1 bolus Per protocol; 1000 mL bolus Route: IV; Rate: 1 km8 bolus; Site: left antecubital; 06:30 Follow up: IV Status: Completed infusion; IV Intake: 1000ml km8 04:32 Drug: Magnesium Sulfate IVPB 2 grams IVPB once over 2 hrs Route: IVPB; Infused Over: 2 km8 hrs; Site: left antecubital; 06:30 Follow up: IV Status: Completed infusion; IV Intake: 50ml km8 Medication: 03:55 VIS not applicable for this client. km8 Intake: 06:30 IV: 50ml; Total: 50ml. km8 06:30 IV: 1000ml; Total: 1050ml. km8 Outcome: 06:12 Discharge ordered by . rt 06:33 Discharged to home ambulatory, km8 06:33 Condition: good 06:33 Discharge instructions given to patient, Instructed on discharge instructions, follow up and referral plans. medication usage, Demonstrated understanding of instructions, follow-up care, medications, Prescriptions given X 1, 06:36 Patient left the ED. tm6 Signatures: Dispatcher [employer] EDNJ Sriram Bassett MD MD rt Hortensia Espinoza 2 Brooklyn Sánchez RN RN km8 Will Heath RN RN tm6 Corrections: (The following items were deleted from the chart) 07:35 06:33 Discharge instructions given to patient, Instructed on discharge instructions, km8 follow up and referral plans. Demonstrated understanding of instructions, follow-up care, km8
[2023-11-07 06:51] VITALS: BP 181/103; O2SAT 98
--- NOTE | 2023-11-08 10:47 | RAD REPORT ---
EXAM DESCRIPTION: CT Head Without Intravenous Contrast CLINICAL HISTORY: The patient is 48 years old and is Female; headache TECHNIQUE: Axial computed tomography images of the head/brain without intravenous contrast. Sagitt al and coronal reformatted images were created and reviewed. This CT exam was performed using one o r more of the following dose reduction techniques: automated exposure control, adjustment of the mA and/or kV according to patient size, and/or use of iterative reconstruction technique. COMPARISON: No relevant prior studies available. FINDINGS: Brain: Corpus callosum lipoma noted incidentally. No hemorrhage. No significant white matter disease. Ventricles: Unremarkable. No ventriculomegaly. Bones/joints: Unremarkable. No acute skull fracture. Soft tissues: See above. Sinuses: Minimal mucosal thickening right maxillary sinus. No air-fluid level. Mastoid air cells: No significant mastoid fluid. IMPRESSION: 1. No acute intracranial findings. No hemorrhage. 2. Minimal mucosal thickening right maxillary sinus. Electronically signed by: eRbeca Crain MD 11/07/2023 05:39 AM CDT Due to temporary technical issues with the PACS/Fluency reporting system, reports are being signed by the in house radiologist without review as a courtesy to ensure prompt reporting. The interpreting r adiologist is fully responsible for the content of the report.
--- NOTE | 2023-11-08 11:01 | RAD REPORT ---
EXAM DESCRIPTION: ADDENDUM #1 Addendum: Additional history provided: headache radiating to right sided neck pain and swelling under right sided jaw no shx No acute findings in the soft tissues of the neck. Specifically, no asymmetric mass, mass effect, lanie ma, or other imaging findings to explain patient's reported right neck pain and jaw swelling.. Electronically signed by: Abe Ohara MD 11/07/2023 06:54 AM CDT End of Addendum EXAM DESCRIPTION: CT Neck With Intravenous Contrast CLINICAL HISTORY: The patient is 48 years old and is Female; neck pain, swelling Bed Name: 6 TECHNIQUE: Axial computed tomography images of the neck with intravenous contrast. Sagittal and co truong reformatted images were created and reviewed. This CT exam was performed using one or more of the following dose reduction techniques: automated exposure control, adjustment of the mA and/or k V according to patient size, and/or use of iterative reconstruction technique. COMPARISON: No relevant prior studies available. FINDINGS: OROPHARYNX: Unremarkable No significant tonsillar enlargement. No peritonsillar absc ess. HYPOPHARYNX: Unremarkable LARYNX: Unremarkable Normal epiglottis. TRACHEA: Unremarkable RETROPHARYNGEAL SPACE: Unremarkable SUBMANDIBULAR/PAROTID GLANDS: Unremarkable Glands are normal in size. THYROID: Unremarkable No enlarged or calcified nodules. BONES/JOINTS: Craniocervical orientation is normal. Straightening of the of normal lordosis of the cervical spine as the patient is positioned. A ppearance is nonspecific and could be positional or seen with muscular strain or spasm. No acute fracture or acute vertebral body height loss. No significant subluxation. No dislocation. No significant kareem spinal canal stenosis. SOFT TISSUES: Unremarkable No abnormal prevertebral soft tissue swelling. VASCULATURE: No acute findings. LYMPH NODES: Unremarkable No lymphadenopathy. SINUSES: Tiny left maxillary sinus retention cyst. Mild right maxillary sinus and bilateral ethmoid air cell mucosal thickening. LUNG APICES: Azygos lobe incidentally noted. OTHER FINDINGS: Dens is intact. IMPRESSION: 1. No acute abnormality of the soft tissues of the neck. 2. Straightening of the of normal lordosis of the cervical spine as the patient is positioned. Appe arance is nonspecific and could be positional or seen with muscular strain or spasm. Electronically signed by: Abe Ohara MD 11/07/2023 06:03 AM CDT Due to temporary technical issues with the PACS/Fluency reporting system, reports are being signed by the in house radiologist without review as a courtesy to ensure prompt reporting. The interpreting r adiologist is fully responsible for the content of the report.
== END ==
LOC: ER 03:44
DX: R51.9 Headache, unspecified (principal); K02.9 Dental caries, unspecified; F17.210 Nicotine dependence, cigarettes, uncomplicated; Z88.1 Allergy status to other antibiotic agents
CPT/HCPCS: 82565; 70450; 70491; Q9967; J3475; J2765; J1200; J7030; 96365; 96366; 96375; 99284